=== PATIENT | male | born 2000 | race Two or more races ===

== ENCOUNTER 2024-10-13 20:02 | Emergency (ER) | payer MEDICAID, SELFPAY ==
[2024-10-13 20:03] VITALS: BMI 23.1
[2024-10-13 20:28] VITALS: BP 88/57; PULSE 117; RESP 18; O2SAT 100
[2024-10-13 20:35] VITALS: TEMP 36.4
--- NOTE | 2024-10-13 20:44 | EKG_ITS ---
[facility] Test Date: 2024-10-13 Pat Name: JOSEPH CHOW Department: Room: - Gender: Male Skirt Clipper: : 2000 Requested By: Ezra Mckeon Order Number: [id number] Reading MD: Ezra Mckeon Measurements Intervals [place] Rate: 113 P: 69 ND: 121 QRS: 75 QRSD: 71 T: 61 QT: 341 QTc: 469 Interpretive Statements SINUS TACHYCARDIA ABNORMAL RHYTHM ECG No previous ECG available for comparison /store/S0/[id number]/[id number]
--- NOTE | 2024-10-13 20:48 | EDNOTE_ITS ---
ED General RME/HPI General Chief complaint: Syncope / Near Syncope Stated complaint: SYNCOPAL EPISODE Time Seen by Provider: 10/13/24 20:43 Arrival date/time: 10/13/24 20:02 CC: Lightheaded dizzy HPI ongoing for the past week, progressively worse patient states he cannot even look up without being dizzy patient has fallen several times. The patient admits to methamphetamine use and cigarette smoking denies any alcohol no other street drugs. Patient is pale uncomfortable looking but not toxic appearing. Related Data Home Medications ?Medication ?Instructions ?Recorded ?Confirmed insulin lispro 100 unit/mL 10 unit subcut TID 07/26/20 05/03/21 subcutaneous solution (Humalog U-100 Insulin) buspirone 15 mg tablet 15 mg PO BID 05/03/21 05/03/21 chlorthalidone 25 mg tablet 25 mg PO PRN swelling 08/01/24 enalapril maleate 2.5 mg tablet 2.5 mg PO DAILY 08/01/24 08/01/24 enalapril maleate 2.5 mg tablet mg 08/01/24 escitalopram oxalate 5 mg tablet 5 mg PO DAILY 08/01/24 08/01/24 flash glucose sensor (FreeStyle 08/01/24 08/01/24 Melanie 2 Sensor kit) insulin glargine 100 unit/mL (3 20 unit subcut HS 08/01/24 08/01/24 mL) subcutaneous pen (Basaglar KwikPen U-100 Insulin) pregabalin 225 mg capsule 225 mg PO BID 08/01/24 08/01/24 trazodone 50 mg tablet 50 mg PO HS 08/01/24 08/01/24 Previous Rx's ?Medication ?Instructions ?Recorded insulin glargine 100 unit/mL (3 20 unit (0.2 mL) subcut HS #0 mL 05/05/21 mL) subcutaneous pen (Basaglar KwikPen U-100 Insulin) Allergies Allergy/AdvReac Type Severity Reaction Status Date / Time No Known Allergies Allergy Verified 10/13/24 20:05 Review of Systems Review of Systems Narrative Review of Systems: GEN: No fever, no chills, no weight loss EYES: No discharge, no visual changes, no pain HEENT: No ear pain, no congestion, no sore throat PULM: No shortness of breath, no cough, no congestion CV: No chest pain, no dyspnea on exertion, no palpitations GI: No nausea, no vomiting, no diarrhea, no pain, no constipation : No frequency, no urgency, no dysuria MUSC/SKEL: No joint pain, no back pain SKIN: No rash PSYCH: No hallucinations, no depression HEME/LYMPH: No easy bleeding or bruising tendencies NEURO: No weakness, no headache, + dizziness Past Medical History Past Medical History CARDIAC: Negative Congestive Heart Failure RESPIRATORY: Negative Chronic Obstructive Pulmonary Disease (COPD) GENITOURINARY: Negative Renal Disease ENDOCRINE: Positive Diabetes Mellitus Type 1; Negative Diabetes Mellitus Type 2 PSYCHO/SOCIAL: Positive Anxiety Social History SMOKING STATUS: Light (< 1 pack/day) SECOND HAND EXPOSURE: No SUBSTANCE USE: marijuana (weekend use) ED Exam Narrative Physical exam: [General: In discomfort but not in any acute distress Head normocephalic HEENT: Eyes pupils are PERRLA EOMs are intact, blanched conjunctiva, mouth: Lips are pale, pink dry membranes uvula is midline swallow symmetrical phonation is normal nose: No rhinorrhea all other subsystems of HEENT are within acceptable limits Neck is supple nontender no JVD no edema no LAD Chest equal chest rise nontender to palpation Respiratory: Clear to auscultation no wheezes crackles or rubs CV: Rate rhythm is regular, tachycardic, no murmurs rubs or clicks Abdomen is soft nontender no masses positive bowel sounds all 4 quadrants Back: No CVA tenderness no spinous process tenderness from cervical spine thoracic and lumbar spine Skin: Pale, intact no petechiae rash induration ulceration or crepitus Extremities: Moving all extremity against resistance cap refill less than 2 seconds neurosensory intact Neuro: Awake alert oriented x3 Glascow coma 15 no focal deficits] Course Quality Measures VTE prophylaxis Orders Category Date Time Status Bedside Blood Glucose NOW Care 10/13/24 20:30 Completed EKG (ED ONLY) *Do not use* NOW Care 10/13/24 20:44 Completed Orthostatic Vitals NOW Care 10/13/24 20:45 Completed Saline [Insert IV] NOW Care 10/13/24 20:[address] head/brain wo con Stat Exams 10/13/24 21:24 Completed EKG (ED Only) Stat Exams 10/13/24 20:44 Draft B-Type Natriuretic Peptide Stat Lab 10/13/24 21:37 Completed CBC Stat Lab 10/13/24 21:37 Completed Comprehensive Metabolic Panel Stat Lab 10/13/24 21:37 Completed Creatine Kinase Stat Lab 10/13/24 21:37 Completed Drug Screen,Urine Stat Lab 10/13/24 23:11 Completed Ketone [Beta Hydroxybutyrate] Stat Lab 10/14/24 00:48 Completed LDH (Lactate Dehydrogenase) Stat Lab 10/13/24 21:37 Completed Magnesium Stat Lab 10/13/24 21:37 Completed Partial Thromboplastin Time Stat Lab 10/13/24 21:37 Completed Prothrombin Time with INR Stat Lab 10/13/24 21:37 Completed Troponin I Stat Lab 10/13/24 21:37 Completed Urinalysis Stat Lab 10/13/24 23:11 Completed VBG [Venous Blood Gas] Stat Lab 10/14/24 00:48 Completed Sodium Chloride 0.9% 1000 ml [Ns] 1,000 ml Med 10/13/24 20:44 Discontinued IV 999 mls/hr Sodium Chloride 0.9% 1000 ml [Ns] 1,000 ml Med 10/13/24 20:44 Discontinued IV 999 mls/hr Sodium Chloride 0.9% 1000 ml [Ns] 1,000 ml Med 10/13/24 22:52 Discontinued IV 999 mls/hr Vital Signs Vital signs: Vital Signs Pulse Rate 117 H 10/13/24 20:28 Respiratory Rate 18 10/13/24 20:28 Blood Pressure 88/57 L 10/13/24 20:28 Pulse Oximetry (%) 100 10/13/24 20:28 Oxygen Delivery Method Room Air 10/13/24 20:28 [facility] Patient data External records reviewed:: [facility] previous records and EMS form Clinical information provided by:: patient and EMS Social determinants that could affect healthcare access:: none Patient has the following chronic illnesses:: Polysubstance abuse How is presenting disease/condition affected by chronic disease/condition?: e xacerbated by Evaluation data The following diagnostics were reviewed and interpreted by me:: lab results and radiology exam(s) Lab and/or radiology exams considered but not ordered:: EKG performed at 2051 shows ventricular rate of 113 NE interval 121 QRS of 71 QTc of 408 this sinus tachycardia. CBC shows no acute leukocytosis anemia thrombocytopenia CMP shows no acute electrolyte imbalances, creatinine 1.7, BUN is within acceptable limits. No transaminitis or T. bili elevation Creatinine kinase is within acceptable limits Troponin is negative BNP is negative. Interpretation Summary: Reassessment the patient at 2254, the patient is feeling a lot better dizziness is mostly resolved after 2 L of fluid the patient continues to be mildly tachycardic, will add 1/3 L to the patient. He is now awake and playing video games. Medications Medications considered but not ordered:: None Medication administrations:: Medication Administration History Discontinued Medications Sodium Chloride (Ns) 1,000 mls @ 999 mls/hr IV .Q1H1M ONE Stop: 10/13/24 21:44 Last Infusion: 10/13/24 22:57 Dose: Infused Documented By: Admin: 10/13/24 21:13 Dose: 999 mls/hr Documented By: KG Sodium Chloride (Ns) 1,000 mls @ 999 mls/hr IV .Q1H1M ONE Stop: 10/13/24 21:44 Last Infusion: 10/13/24 22:57 Dose: Infused Documented By: Admin: 10/13/24 21:13 Dose: 999 mls/hr Documented By: KG Sodium Chloride (Ns) 1,000 mls @ 999 mls/hr IV .Q1H1M ONE Stop: 10/13/24 23:52 Last Infusion: 10/14/24 00:43 Dose: Infused Documented By: Admin: 10/13/24 23:40 Dose: 999 mls/hr Documented By: KG None Consultations Consultation(s) initiated? (list below): No Diagnosis Differential Diagnosis ED Complaint MDM: Dehydration renal impairment polysubstance abuse Most likely diagnosis given after review of the tests above:: Dehydration hypotension Admission Indicated Admission indicated?: not indicated Explain why admission is indicated or not indicated:: Stable for outpatient follow-up Admission Request Was there a request for admission?: No Disposition Plan Disposition Plan: Discharge Discharge Attestation Discharge Attestation: The patient and all family members were given an opportunity to ask questions and understood the discharge instructions. Discharge instructions specifically effects, indications for sooner follow up or return to the emergency department, and the expected course of current diagnosis. Patient condition: Stable Medical Decision Making Differential Diagnosis Differential Diagnosis: Dehydration renal impairment polysubstance abuse Lab Data 10/13/24 21:37 10/13/24 21:37 Labs: Lab Results 01/04/0110/13/24 10/14/24 Range/Units 21:37 23:11 00:48 WBC 11.8 H (3.8-10.6) Thou/mm3 RBC 5.02 (4.50-5.90) Miln/mm3 Hgb 15.7 (13.5-16.0) g/dL Hct 43.5 (41.0-53.0) % MCV 87 (80-100) fL MCH 31.3 (25.0-35.0) pg MCHC 36.1 (31.0-37.0) g/dl RDW Std Deviation 38.8 (35.1-43.9) fL Plt Count 290 (140-440) Thou/mm3 Neut % (Auto) 77 (37-80) % Lymph % (Auto) 13 (10-50) % [place] % (Auto) 8 (0-12) % Eos % (Auto) 1 (0-10) % Baso % (Auto) 0 (0-2.5) % Neut # (Auto) 9.1 H (1.8-7.7) Thou/mm3 Lymph # (Auto) 1.5 (1.0-4.8) Thou/mm3 [place] # (Auto) 1.0 H (0.0-0.8) Thou/mm3 Eos # (Auto) 0.1 (0.0-0.5) Thou/mm3 Baso # (Auto) 0.0 (0.0-0.2) Thou/mm3 Immature Gran # (Auto) 0.03 H (0.00-0.00) Thou/mm3 Absolute Nucleated RBC 0.00 (0.00-0.00) Thou/mm3 Immature Gran % 0 (0-0) % Nucleated RBC % 0 (0) /100 WBC PT 11.0 (9.0-12.2) Seconds INR 1.0 (0.9-1.3) APTT 25.3 (22.0-36.0) Seconds VBG pH 7.37 (7.33-7.66) VBG pCO2 40 (36-56) mmHg VBG pO2 36 (15-58) mmHg VBG O2 Sat (Michael) 73 L (96-97) % VBG Base Excess -2 (-3-3) Sodium 142 (136-145) mMol/L Potassium 3.9 (3.4-5.1) mMol/L Chloride 104 (98-107) mMol/L Carbon Dioxide 27.3 (20.0-31.0) mMol/L Anion Gap 11 (7-16) BUN 21 (9-23) mg/dL Creatinine 1.7 H (0.6-1.3) mg/dL Estim Creat Clear Calc 55.1 L (>60) mL/min eGFR 56 L (60 - ) See Note BUN/Creatinine Ratio 12 (12-20) Ratio Glucose 110 H (74-106) mg/dL Calculated Osmolality 287 (275-295) Calcium 9.8 (8.3-10.6) mg/dL Corrected Calcium 9.8 (8.5-10.1) mg/dL Magnesium 2.1 (1.6-2.6) mg/dL Total Bilirubin 1.2 (0.3-1.2) mg/dL AST 13 (0-34) U/L ALT 13 (10-49) U/L Alkaline Phosphatase 58 (46-116) U/L Lactate Dehydrogenase 162 (120-246) U/L Total Creatine Kinase 76 (34-171) U/L Troponin I < 0.020 (0.0-0.045) ng/mL B-Natriuretic Peptide < 20 (0-100) pg/mL Total Protein 7.1 (5.7-8.2) gm/dL Albumin 4.6 (3.5-5.0) gm/dL Globulin 2.5 (2.3-3.5) gm/dL Albumin/Globulin Ratio 1.8 (1.2-2.2) Beta-Hydroxybutyrate/Acetoacetate 0.8 H (<0.6) mmol/L Ur Collection Type Clean Catch Urine Color Lt-Yellow (Lt Yel-Yel) Urine Clarity Clear (Clear/Hazy) Urine pH 6.0 (5.0-7.0) Ur Specific [place] 1.015 (1.001-1.035) Urine Protein 1+ A (Neg - Trace) Urine Glucose (UA) 4+ A (Negative) Urine Ketones 1+ A (Negative) Urine Blood Trace (Negative) Urine Nitrite Negative (Negative) Urine Bilirubin Negative (Negative) Urine Urobilinogen (Auto) Negative (0.0-1.0) mg/dL Ur Leukocyte Esterase Negative (Negative) Urine RBC 4 H (0-3) /hpf Urine WBC 9 H (0-5) /hpf Ur Squamous Epith Cells < 1 (0-5) /hpf Urine Bacteria Rare (None) Hyaline Casts 1 (0-1) /hpf Urine Opiates Screen Negative (Negative) Urine Fentanyl Screen Negative (Negative) Ur Barbiturates Screen Negative (Negative) U Amphetamin/Meth Scrn Positive A (Negative) U Benzodiazepines Scrn Negative (Negative) U Cocaine Metab Screen Positive A (Negative) U Marijuana (THC) Screen Positive A (Negative) Discharge Plan Plan Patient Disposition: HOME (Self Care) Disposition Comment: Stable for discharge Patient condition on transfer: Stable Prescriptions/Referrals Prescriptions/Med Rec: No Action insulin lispro [Humalog U-100 Insulin] 100 unit/mL Solution 10 unit SUBCUT TID buspirone 15 mg tablet 15 mg PO BID insulin glargine [Basaglar KwikPen U-100 Insulin] 100 unit/mL (3 mL) insulin pen 20 unit SUBCUT HS Qty: 0 0RF Patient Comments: INJECT 16 UNITS UNDER THE SKIN EVERY DAY AT BEDTIME trazodone 50 mg tablet 50 mg PO HS enalapril maleate 2.5 mg tablet 2.5 mg PO DAILY enalapril maleate 2.5 mg tablet pregabalin 225 mg capsule 225 mg PO BID (DME) FreeStyle Melanie 2 Sensor Kit chlorthalidone 25 mg tablet 25 mg PO PRN (Reason: swelling) escitalopram oxalate 5 mg tablet 5 mg PO DAILY Patient Comments: TAKE 1 TABLET BY ORAL ROUTE ONCE DAILY AM insulin glargine [Basaglar KwikPen U-100 Insulin] 100 unit/mL (3 mL) insulin pen 20 unit SUBCUT HS Referrals: Dean Tanner MD [Primary Care Provider] - In 1 week Problem List Clinical Impression: Polydrug abuse, Dehydration, Syncope Patient/Caregiver Discharge Instructions Discharge Activity: activity as tolerated Education Materials: What Is Syncope?, Causes of Syncope, Treating Drug Abuse and Addiction, ED Dehydration (Adult) Additional Instructions: Please return to the emergency department if you are not improving within 48 hours or if you are worsening in any way and we will help you Otherwise you should follow-up with your primary care doctor within the next several days Print Language: East Timorese Stand Alone Forms: [employer] Info., Patient Portal Info Letter
[2024-10-13 21:06] VITALS: BP 103/72; BP 120/78; BP 65/42; PULSE 115; PULSE 116; PULSE 125
[2024-10-13] MEDS: SODIUM CHLORIDE 0.9% 1000 ML 1,000 ML 999 ML IV ×3 (21:13→23:40)
--- NOTE | 2024-10-13 21:24 | XR_ITS ---
Examination: CT brain head without contrast. 2-D sagittal coronal reconstructions Date and time of exam:October 13, 2024 2158 hrs. Indications: Syncopal episode beginning 2 hours ago Comparison: February 05, 2024 CTDI: vol (mGy):48.7 DLP: (mGycm):900 Technique: Multiple CT axial sections of the brain have been obtained, 5 mm slice thickness. Contrast has not been administered. 2-D sagittal, coronal reconstructions have been obtained Low dose protocols were performed. One or more of the following dose reduction techniques were used; automated exposure control, adjustment of the mA and/or KV according to patient size, use of iterative reconstruction technique. Findings: No significant ventricular enlargement. Intra-axial or extra-axial hemorrhage density is not seen. No mass effect or midline shift Basal cisterns are not remarkable. Fourth ventricle is midline. Cranial vault intact. Impression: Negative for acute hemorrhage, mass effect or midline shift Advise clinical correlation and follow-up accordingly
--- NOTE | 2024-10-13 21:51 | PC.NURSE ---
Pt to CT scan via [facility] at this time.
[2024-10-13 22:11] LABS: Basophils % (Auto) 0 % (0-2.5); Eosinophils # (Auto) 0.1 Thou/mm3 (0.0-0.5); Eosinophils % (Auto) 1 % (0-10); Hematocrit 43.5 % (41.0-53.0); Hemoglobin 15.7 g/dL (13.5-16.0); Immature Granulocytes % (Auto) 0 % (0-0); Immature Granulocytes Auto 0.03 Thou/mm3 (0.00-0.00); Lymphocytes # (Auto) 1.5 Thou/mm3 (1.0-4.8); Lymphocytes % (Auto) 13 % (10-50); Mean Corpuscular HGB Conc 36.1 g/dl (31.0-37.0); Mean Corpuscular Hemoglobin 31.3 pg (25.0-35.0); Mean Corpuscular Volume 87 fL (80-100); Monocytes % (Auto) 8 % (0-12); Neutrophils # (Auto) 9.1 Thou/mm3 (1.8-7.7); Neutrophils % (Auto) 77 % (37-80); Nucleated Red Blood Cell % 0 /100 WBC (0); Platelet Count 290 Thou/mm3 (140-440); RDW Standard Deviation 38.8 fL (35.1-43.9); Red Blood Count 5.02 Miln/mm3 (4.50-5.90); White Blood Count 11.8 Thou/mm3 (3.8-10.6)
[2024-10-13 22:15] VITALS: BP 134/84; PULSE 109; RESP 17; O2SAT 99
[2024-10-13 22:23] LABS: B-Type Natriuretic Peptide < 20 pg/mL (0-100)
[2024-10-13 22:30] LABS: Partial Thromboplastin Time 25.3 Seconds (22.0-36.0)
[2024-10-13 22:31] LABS: Alanine Aminotransferase 13 U/L (10-49); Albumin, Serum 4.6 gm/dL (3.5-5.0); Albumin/Globulin Ratio 1.8 (1.2-2.2); Alkaline Phosphatase 58 U/L (46-116); Anion Gap 11 (7-16); Aspartate Amino Transferase 13 U/L (0-34); BUN/Creatinine Ratio 12 Ratio (12-20); Bilirubin,Total 1.2 mg/dL (0.3-1.2); Blood Urea Nitrogen 21 mg/dL (9-23); Calcium 9.8 mg/dL (8.3-10.6); Calcium (Corrected) 9.8 mg/dL (8.5-10.1); Carbon Dioxide 27.3 mMol/L (20.0-31.0); Chloride 104 mMol/L (98-107); Creatine Kinase 76 U/L (34-171); Creatinine (Component) 1.7 mg/dL (0.6-1.3); Estimated Creatinine Clearance 55.1 mL/min (>60); Globulin 2.5 gm/dL (2.3-3.5); Glucose 110 mg/dL (74-106); Magnesium 2.1 mg/dL (1.6-2.6); Osmolality,Calculated 287 (275-295); Potassium 3.9 mMol/L (3.4-5.1); Sodium 142 mMol/L (136-145); Total Protein 7.1 gm/dL (5.7-8.2); Troponin I < 0.020 ng/mL (0.0-0.045); eGFR 56 See Note
[2024-10-13 22:43] LABS: LDH (Lactate Dehydrogenase) 162 U/L (120-246)
--- NOTE | 2024-10-13 23:09 | PD.EDADDENDU ---
Emergency Room Addendum Addendum Narrative: 2300: Care assumed from Ezra Ovalle NP. Past medical, surgical, social and family history reviewed. Vitals and home medications reviewed. Results and treatment plan discussed. I will assume the care of the patient at this time and will follow the patient, pending urinalysis and re-evaluation. Please refer to the emergency department record for history and examination from initial visit. 24yo male with a history of DMI, methamphetamine abuse presents to the ED for a chief complaint of near syncope. Patient states he has not ate or drank anything today, reporting he has not used methamphetamines in the last 6 days. On exam, patient is tachycardic. WBC count is elevated at 11.8, Creatinine is 1.7, Glucose is 110. Anion Gap is normal, troponin is normal, UA shows 1+ protein, 4+ glucose, and 1+ ketones, UDS is positive for marijuana, cocaine, and marijuana, according to my interpretation. VBG shows a normal pH, normal CO2, and normal base excess; Beta Hydroxybutyrate is slightly elevated at 0.8, according to my interpretation. 0124: Patient states he feels better, but is still tachycardic on exam. Orthostatics ordered. Patient with normal orthostatic V/S. No lightheadedness or dizziness when standing up and is asymptomatic. Patient is stable to be discharged home. RADIOLOGY RESULTS: [place] [facility] Report Signed Patient: JOSEPH CHOW. Record#: [id number] Birthdate: 2000 Age/Sex: 24 / M Location: [facility] Attending Dr: Ordering Physician: Ezra Ovalle NP Date of Service: 10/13/24 Procedure(s): CT head/brain wo con Accession Number(s): [id number] cc: Ezra Ovalle NP; Rico Johnston MD; Dean Tanner MD~ Examination: CT brain head without contrast. 2-D sagittal coronal reconstructions Date and time of exam:October 13, 2024 2158 hrs. Indications: Syncopal episode beginning 2 hours ago Comparison: February 05, 2024 CTDI: vol (mGy):48.7 DLP: (mGycm):900 Technique: Multiple CT axial sections of the brain have been obtained, 5 mm slice thickness. Contrast has not been administered. 2-D sagittal, coronal reconstructions have been obtained Low dose protocols were performed. One or more of the following dose reduction techniques were used; automated exposure control, adjustment of the mA and/or KV according to patient size, use of iterative reconstruction technique. Findings: No significant ventricular enlargement. Intra-axial or extra-axial hemorrhage density is not seen. No mass effect or midline shift Basal cisterns are not remarkable. Fourth ventricle is midline. Cranial vault intact. Impression: Negative for acute hemorrhage, mass effect or midline shift Advise clinical correlation and follow-up accordingly Dictated By: Rico Johnston MD Signed By: <Electronically signed by Rico Johnston MD in [place]> 10/13/24 8824
[2024-10-13 23:15] LABS: Collection Type, Urine Clean Catch
[2024-10-13 23:42] VITALS: BP 130/90; PULSE 110; RESP 16; O2SAT 99
[2024-10-14 00:01] LABS: Amphetamine/Methamp Scrn,U Positive (Negative); Barbiturate Screen,Urine Negative (Negative); Benzodiazepines Screen,Urine Negative (Negative); Benzoylecgonine Screen, Ur Positive (Negative); Fentanyl Screen,Urine Negative (Negative); Opiate Screen,Urine Negative (Negative); THC Screen,Urine Positive (Negative)
[2024-10-14 00:04] LABS: Bacteria,Urine Rare; Bilirubin,Urine Negative (Negative); Blood,Urine Trace (Negative); Clarity,Urine Clear (Clear/Hazy); Color,Urine Lt-Yellow (Lt Yel-Yel); Glucose, Urine 4+ (Negative); Hyaline Casts,Urine 1 /hpf (0-1); Ketones,Urine 1+ (Negative); Leukocyte Esterase,Urine Negative (Negative); Nitrite,Urine Negative (Negative); Protein,Urine 1+ (Neg - Trace); RBC,Urine 4 /hpf (0-3); Specific Gravity,Urine 1.015 (1.001-1.035); Squamous Epithelial Cell,Urine < 1 /hpf (0-5); Urobilinogen,Urine Negative mg/dL (0.0-1.0); WBC,Urine 9 /hpf (0-5)
[2024-10-14 01:02] LABS: Base Excess, Venous -2 (-3-3); O2 Saturation, Venous 73 % (96-97); PCO2, Venous 40 mmHg (36-56); PO2, Venous 36 mmHg (15-58); pH, Venous 7.37 (7.33-7.66)
[2024-10-14 01:15] LABS: Beta Hydroxybutyrate 0.8 mmol/L (<0.6)
[2024-10-14 01:36] VITALS: BP 154/107; BP 182/102; PULSE 108; PULSE 115
[2024-10-14 01:41] VITALS: BP 154/118; PULSE 111; RESP 14; TEMP 36.6; O2SAT 99
[2024-10-14 03:07] VITALS: BP 165/113; PULSE 104; RESP 18; O2SAT 100
== END 2024-10-14 03:07 | disposition home or self-care (01) ==
PROVIDERS: Registered Nurse General Practice; Emergency Provider Emergency Medicine; PCP Family Medicine
DX: E86.0 Dehydration (principal); R55 Syncope and collapse; F15.10 Other stimulant abuse, uncomplicated; R00.0 Tachycardia, unspecified
CPT/HCPCS: 36415; 70450; 80053; 80307; 81001; 82010; 82550; 82803; 83615; 83735; 83880; 84484; 85025; 85610; 85730; 93005; 96360; 96361; 99284; J7030

== ENCOUNTER 2024-11-15 14:39 | Emergency (ER) | payer MEDICAID, SELFPAY ==
[2024-11-15 14:47] VITALS: BP 145/96; PULSE 114; RESP 18; TEMP 37.3; O2SAT 97; BMI 22.3
--- NOTE | 2024-11-15 15:17 | EDNOTE_ITS ---
<Statement entered by Viky Colorado MD - 11/16/24 13:50> As co-signing physician, I was present and available for consult prn. I concur with the plan and care as documented by the midlevel provider. ED Dental RME/HPI General Chief complaint: Dental/Oral/Throat Stated complaint: left lower toothache Time Seen by Provider: 11/15/24 14:53 Source: patient Arrival date/time: 11/15/24 14:39 This is a 24-year-old male who presents to the emergency department with complaints of left lower tooth pain. Patient reports he has a bad cavity in which he needs to have pulled out by his dentist. He did go to his dentist today however they are not able to pull out the tooth to 25 November. Patient requesting pain medication today. Mode of arrival: ambulatory Limitations: no limitations Related Data Home Medications ?Medication ?Instructions ?Recorded ?Confirmed insulin lispro 100 unit/mL 10 unit subcut TID 07/26/20 05/03/21 subcutaneous solution (Humalog U-100 Insulin) buspirone 15 mg tablet 15 mg PO BID 05/03/21 chlorthalidone 25 mg tablet 25 mg PO PRN swelling 07/09 02/28 enalapril maleate 2.5 mg tablet 2.5 mg PO DAILY 08/01/24 enalapril maleate 2.5 mg tablet mg 08/01/24 escitalopram oxalate 5 mg tablet 5 mg PO DAILY 4 08/01/24 flash glucose sensor (FreeStyle 08/01/24 08/01/24 Melanie 2 Sensor kit) insulin glargine 100 unit/mL (3 20 unit subcut HS 07/0908/01/24 mL) subcutaneous pen (Basaglar KwikPen U-100 Insulin) pregabalin 225 mg capsule 225 mg PO BID 08/01/2408/01 trazodone 50 mg tablet 50 mg PO HS 08/01/24 4 Previous Rx's ?Medication ?Instructions ?Recorded insulin glargine 100 unit/mL (3 20 unit (0.2 mL) subcu t HS #0 mL 05/05/21 mL) subcutaneous pen (Basaglar KwikPen U-100 Insulin) amoxicillin 875 mg-potassium 1 tab PO BID #14 tabs 06/01 clavulanate 125 mg tablet chlorhexidine gluconate 0.12 % 15 ml buccal BID 5 days #473 mL 11/15/24 mouthwash Allergies Allergy/AdvReac Type Severity Reaction Status Date / Time No Known Allergies Allergy Verified 11/15/24 14:42 Review of Systems Review of Systems Systems Reviewed: All systems reviewed, normal except as documented Narrative Review of Systems: Gen: No fever, no chills, no weight loss EYES: No discharge, no visual changes, no pain HEENT: No ear pain, no congestion, no sore throat, dental pain PULM: No shortness of breath, no cough, no congestion CV: No chest pain, no dyspnea on exertion, no palpitations GI: No nausea, no vomiting, no diarrhea, no pain, no constipation : No frequency, no urgency, no dysuria Musc/skel: No joint pain, no back pain Skin: No rash Psyc: No hallucinations, no depression Heme/Lymph: No easy bleeding or bruising tendencies Neuro: No weakness, no headache ED Exam General Limitations: Present no limitations General appearance: Present alert and in no apparent distress Head Head exam: Present atraumatic Eye Eye exam: Present normal appearance, PERRL and EOMI ENT ENT exam: Present normal oropharynx and mucous membranes moist Expanded ENT Exam Mouth exam: Present normal external inspection; Absent drooling or trismus Teeth exam: Present dental caries and dental tenderness # Neck Neck exam: Present normal inspection, full ROM and trachea midline Chest Chest inspection: Present normal inspection and symmetric chest wall rise Respiratory Respiratory exam: Present normal lung sounds bilaterally Cardiovascular Cardiovascular exam: Present regular rate, normal rhythm and normal heart sounds Abdominal Exam Abdominal exam: Present soft and normal bowel sounds Extremities Exam Extremities exam: Present normal inspection and full ROM Back Exam Back exam: Present normal inspection and full ROM Neurological Exam Neurological exam: Present alert, oriented X3 and CN II-XII intact Psychiatric Psychiatric exam: Present normal affect and normal mood Skin Skin exam: Present warm, dry, intact and normal color Course Quality Measures none Orders Category Date Time Status HYDROcodone*/APAP 7.5/325 [[place] 7.5/325] Med 11/15/24 15:10 Discontinued 1 tab PO X1 ONE Ibuprofen Tab [Motrin Tab] Med 11/15/24 15:10 Discontinued 600 mg PO X1 ONE Vital Signs Vital signs: Vital Signs Temperature 99.1 F 11/15/24 14:47 Pulse Rate 114 H 11/15/24 14:47 Respiratory Rate 18 11/15/24 14:47 Blood Pressure 145/96 H 11/15/24 14:47 Pulse Oximetry (%) 97 11/15/24 14:47 Oxygen Delivery Method Room Air 11/15/24 14:47 Dental / Oral Patient data External records reviewed:: [facility] previous records Clinical information provided by:: patient Social determinants that could affect healthcare access:: none Patient has the following chronic illnesses:: Diabetes, How is presenting disease/condition affected by chronic disease/condition?: uneffected by Evaluation data The following diagnostics were reviewed and interpreted by me:: other (specify) Lab and/or radiology exams considered but not ordered:: None Interpretation Summary: No Medications / Prescriptions Medications or Prescriptions considered but not ordered:: No Medication administrations:: Medication Administration History Discontinued Medications Hydrocodone Bitart/Acetaminophen (Hydrocodone/Apap 7.5/325 Tablet) 1 tab PO X1 ONE Stop: 11/15/24 15:11 Ibuprofen (Ibuprofen Tab 600 Mg Tablet) 600 mg PO X1 ONE Stop: 11/15/24 15:11 All medications administered and effective Consultations Consultation(s) initiated? (list below): No Diagnosis Dental Differential Diagnosis: gingival abscess, dental caries, toothache and dental abscess Most likely diagnosis given after review of the tests above:: Dental caries, tooth take Admission Indicated Admission indicated?: not indicated Admission Request Was there a request for admission?: No Disposition Plan Disposition Plan: Discharge Discharge Attestation Discharge Attestation: The patient and all family members were given an opportunity to ask questions and understood the discharge instructions. Discharge instructions specifically effects, indications for sooner follow up or return to the emergency department, and the expected course of current diagnosis. Patient condition: Stable Discharge Plan Plan Patient Disposition: HOME (Self Care) Patient condition on transfer: Stable Prescriptions/Referrals Prescriptions/Med Rec: New amoxicillin-pot clavulanate 875-125 mg tablet 1 tab PO BID Qty: 14 0RF chlorhexidine gluconate 0.12 % mouthwash 15 ml buccal BID 5 Days Qty: 473 0RF Rx Instructions: 15ml swish/spit for 30 seconds and spit BID for 5 days No Action insulin lispro [Humalog U-100 Insulin] 100 unit/mL Solution 10 unit SUBCUT TID buspirone 15 mg tablet 15 mg PO BID insulin glargine [Basaglar KwikPen U-100 Insulin] 100 unit/mL (3 mL) insulin pen 20 unit SUBCUT HS Qty: 0 0RF Patient Comments: INJECT 16 UNITS UNDER THE SKIN EVERY DAY AT BEDTIME trazodone 50 mg tablet 50 mg PO HS enalapril maleate 2.5 mg tablet 2.5 mg PO DAILY enalapril maleate 2.5 mg tablet pregabalin 225 mg capsule 225 mg PO BID (DME) FreeStyle Melanie 2 Sensor Kit chlorthalidone 25 mg tablet 25 mg PO PRN (Reason: swelling) escitalopram oxalate 5 mg tablet 5 mg PO DAILY Patient Comments: TAKE 1 TABLET BY ORAL ROUTE ONCE DAILY AM insulin glargine [Basaglar KwikPen U-100 Insulin] 100 unit/mL (3 mL) insulin pen 20 unit SUBCUT HS Problem List Clinical Impression: Dental caries, Toothache Patient/Caregiver Discharge Instructions Discharge Activity: activity as tolerated Education Materials: ED Dental Pain, ED Dental Cavity Additional Instructions: Please keep your appointment with your dentist. Use antibiotic as directed. Use mouthwash as directed. Return to the emergency department this any worsening symptoms any condition. Print Language: Turkmen Stand Alone Forms: Xiao Award Info., Patient Portal Info Letter PA/SUPERVISOR PLATE [employer]MING Supervising Physician PA/SUPERVISOR [employer]ATE [employer]MING Supervising Physician: Dr. Moya
[2024-11-15] MEDS: HYDROcodone/APAP 7.5/325 TABLET 1 TAB PO (15:27)
[2024-11-15] MEDS: IBUPROFEN TAB 600 MG TABLET PO (15:28)
== END 2024-11-15 15:30 | disposition home or self-care (01) ==
PROVIDERS: Emergency Provider Emergency Medicine; PCP Family Medicine
DX: K02.9 Dental caries, unspecified (principal)
CPT/HCPCS: 99283; A9270

== ENCOUNTER 2025-03-13 16:39 | Emergency (ER) | payer OTHER, SELFPAY ==
[2025-03-13 16:41] VITALS: BMI 23.9
[2025-03-13 16:58] VITALS: BP 130/86; PULSE 106; RESP 18; TEMP 36.7; O2SAT 99
--- NOTE | 2025-03-13 17:19 | PD.EDRME ---
Rapid Medical Screening Exam [facility] Arrival date/time: 03/13/25 16:39 24-year-old male with a history of type 1 diabetes presents to the emergency room with a chief complaint of oil barr to his bilateral hands from work. 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 I have greeted and performed a focused initial assessment of this patient. A comprehensive ED assessment and evaluation of the patient, analysis of all test results, and completion of the medical decision making process will be conducted by additional ED providers. Chief Complaint: Burn/Smoke Inhalation Vital signs: Vital Signs Temperature 98.1 F 03/13/25 16:58 Pulse Rate 106 H 03/13/25 16:58 Respiratory Rate 18 03/13/25 16:58 Blood Pressure 130/86 H 03/13/25 16:58 Pulse Oximetry (%) 99 03/13/25 16:58 Oxygen Delivery Method Room Air 03/13/25 16:58 Vital signs reviewed by provider: Yes
[2025-03-13 19:47] VITALS: BP 162/98; PULSE 112; RESP 18; TEMP 36.8; O2SAT 97
[2025-03-13] MEDS: INSULIN LISPRO (AdmeLOG) 1 UNIT/0.01 ML UNIT 15 UNIT SC (21:56)
[2025-03-13] MEDS: BACITRACIN OINT 1 GM PACKET TOP (21:57)
--- NOTE | 2025-03-13 22:18 | PD.EDBURN ---
ED Smoke Inhal. Burn- RME/HPI General Chief complaint: Burn/Smoke Inhalation Stated complaint: L & R HAND WEINSTEIN X10 DAYS Time Seen by Provider: 03/13/25 18:26 Source: patient Arrival date/time: 03/13/25 16:39 24-year-old male with a history of type 1 diabetes presents to the emergency room with a chief complaint of oil weinstein to his bilateral hands from work. 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 Mode of arrival: ambulatory Limitations: no limitations RME / HPI RME / HPI Narrative: 03/13/25 16:39 24-year-old male with a history of type 1 diabetes presents to the emergency room with a chief complaint of oil weinstein to his bilateral hands from work. 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 I have greeted and performed a focused initial assessment of this patient. A comprehensive ED assessment and evaluation of the patient, analysis of all test results, and completion of the medical decision making process will be conducted by additional ED providers. Related Data Home Medications ?Medication ?Instructions ?Recorded ?Confirmed insulin lispro 100 unit/mL 10 unit subcut TID 07/26/20 05/03/21 subcutaneous solution (Humalog U-100 Insulin) buspirone 15 mg tablet 15 mg PO BID 05/03/21 05/03/21 chlorthalidone 25 mg tablet 25 mg PO PRN swelling 08/01/24 enalapril maleate 2.5 mg tablet 2.5 mg PO DAILY 08/01/24 08/01/24 enalapril maleate 2.5 mg tablet mg 08/01/24 escitalopram oxalate 5 mg tablet 5 mg PO DAILY 08/01/24 08/01/24 flash glucose sensor (FreeStyle 08/01/24 08/01/24 Melanie 2 Sensor kit) insulin glargine 100 unit/mL (3 20 unit subcut HS 08/01/24 08/01/24 mL) subcutaneous pen (Basaglar KwikPen U-100 Insulin) pregabalin 225 mg capsule 225 mg PO BID 08/01/24 08/01/24 trazodone 50 mg tablet 50 mg PO HS 08/01/24 08/01/24 Previous Rx's ?Medication ?Instructions ?Recorded insulin glargine 100 unit/mL (3 20 unit (0.2 mL) subcut HS #0 mL 05/05/21 mL) subcutaneous pen (Basaglar KwikPen U-100 Insulin) amoxicillin 875 mg-potassium 1 tab PO BID #14 tabs 11/15/24 clavulanate 125 mg tablet bacitracin 500 unit/gram topical 1 applic topical TID #28 grams 03/13/25 ointment ciprofloxacin HCl 500 mg tablet 500 mg PO BID 7 days #14 tabs 03/13/25 Allergies Allergy/AdvReac Type Severity Reaction Status Date / Time No Known Allergies Allergy Verified 03/13/25 16:43 Review of Systems Review of Systems Systems Reviewed: All systems reviewed, normal except as documented Constitutional Constitutional: Reports system reviewed and no additional complaints, except as documented, Denies fatigue, Denies fever(s), Denies headache(s) and Denies weakness Eyes Eyes: Reports system reviewed and no additional complaints, except as documented, Denies blurry vision and Denies change in vision ENT Ears, Nose, Mouth, and Throat: Reports system reviewed and no additional complaints, except as documented, Denies otalgia, Denies headache(s), Denies nasal congestion, Denies throat swelling and Denies vertigo Cardiovascular Cardiovascular: Reports system reviewed and no additional complaints, except as documented, Denies chest pain, Denies dyspnea and Denies dyspnea on exertion Respiratory Respiratory: Reports system reviewed and no additional complaints, except as documented, Denies chest congestion, Denies cough, Denies dyspnea, Denies dyspnea on exertion and Denies wheezing Gastrointestinal Gastrointestinal: Reports system reviewed and no additional complaints, except as documented, Denies abdominal pain, Denies cramping, Denies nausea and Denies vomiting Genitourinary Genitourinary: Reports system reviewed and no additional complaints, except as documented, Denies dysuria and Denies hematuria Musculoskeletal Musculoskeletal: Reports system reviewed and no additional complaints, except as documented and Denies back pain Integumentary/Breasts Skin/Breast: Reports system reviewed and no additional complaints, except as documented, Reports skin pain and Reports wounds Neurologic Neurologic: Reports system reviewed and no additional complaints, except as documented, Denies confusion, Denies headache(s), Denies lack of coordination, Denies vertigo and Denies weakness Psychiatric Psychiatric: Reports system reviewed and no additional complaints, except as documented, Denies anxiety, Denies confusion, Denies depression, Denies paranoia, Denies suicidal ideation and Denies tactile hallucinations Endocrine Endocrine: Reports system reviewed and no additional complaints, except as documented and Denies fatigue Hematologic/Lymphatic Hematologic/Lymphatic: Reports system reviewed and no additional complaints, except as documented and Denies lymphadenopathy Allergic/Immunologic Allergic/Immunologic: Reports system reviewed and no additional complaints, except as documented, Denies throat swelling, Denies urticaria and Denies wheezing Past Medical History Past Medical History CARDIAC: Negative Congestive Heart Failure RESPIRATORY: Negative Chronic Obstructive Pulmonary Disease (COPD) GENITOURINARY: Negative Renal Disease ENDOCRINE: Positive Diabetes Mellitus Type 1; Negative Diabetes Mellitus Type 2 PSYCHO/SOCIAL: Positive Anxiety Social History SMOKING STATUS: Current every day smoker SECOND HAND EXPOSURE: No SUBSTANCE USE: marijuana (weekend use) ED Exam General Limitations: Present no limitations General appearance: Present alert and in no apparent distress Head Head exam: Present atraumatic Eye Eye exam: Present normal appearance, PERRL and EOMI ENT ENT exam: Present normal exam, normal oropharynx and mucous membranes moist Neck Neck exam: Present normal inspection, full ROM and trachea midline Chest Chest inspection: Present normal inspection and symmetric chest wall rise Respiratory Respiratory exam: Present normal lung sounds bilaterally Cardiovascular Cardiovascular exam: Present regular rate, normal rhythm and normal heart sounds Abdominal Exam Abdominal exam: Present soft and normal bowel sounds Extremities Exam Extremities exam: Present normal inspection and full ROM Expanded Upper Extremity Exam Shoulder exam: Present normal inspection Arm exam: Present normal inspection Elbow exam: Present normal inspection Forearm/Wrist exam: Present normal inspection Hand exam: Present normal inspection, tenderness and erythema; Absent swelling, abrasion, laceration, skin avulsion, ecchymosis, deformity, crepitus or dislocation Hand L/R back image:  1. Second-degree weinstein to his hands. His weinstein have been there for more than 5 days. 2. Second-degree weinstein to his hands. His weinstein have been there for more than 5 days. 3. Second-degree weinstein to his hands. His weinstein have been there for more than 5 days. Back Exam Back exam: Present normal inspection and full ROM Neurological Exam Neurological exam: Present alert, oriented X3 and CN II-XII intact Psychiatric Psychiatric exam: Present normal affect and normal mood Skin Skin exam: Present warm, dry, intact and normal color Course Quality Measures none Orders Category Date Time Status Wound Care X1 Care 03/13/25 17:18 Active Bacitracin Oint pkt Med 03/13/25 17:18 Discontinued 1 gm TOP X1 ONE INSULIN LISPRO (AdmeLOG) [HumaLOG] Med 03/13/25 21:21 Discontinued 15 unit SC X1 ONE Vital Signs Vital signs: Vital Signs Temperature 98.1 F 03/13/25 16:58 Pulse Rate 106 H 03/13/25 16:58 Respiratory Rate 18 03/13/25 16:58 Blood Pressure 130/86 H 03/13/25 16:58 Pulse Oximetry (%) 99 03/13/25 16:58 Oxygen Delivery Method Room Air 03/13/25 16:58 To saturation 99% within normal limits Burn MDM Narrative MDM Narrative:: 24-year-old male with a history of type 1 diabetes presents to the emergency room with a chief complaint of oil weinstein to his bilateral hands from work. 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 He is hemodynamically stable and in no apparent distress Physical examination shows weinstein to the bilateral hands. Patient states these weinstein have been in his hands anywhere from 5 to 10 days. The 2 biggest weinstein are on the second digits of each hand. There are about the size of a dime. There are old wounds that are crusting. Patient is a type I diabetic but states he is controlling his sugar. Patient forgot his insulin and while in the lobby ate his food.. My reevaluation to discharge the patient the patient states his blood sugar is elevated. A fingerstick was done and his sugar was at 497. 15 units of lispro were given. The patient was reevaluated in 30 minutes with significant improvement to his sugar as he has dropped down to 406. Attending physician Dr. Hudson was then consulted and stated that the sugar is trending down and the patient has insulin at home. Patient's wounds were cleaned and irrigated and dressed. Bacitracin was put on the. This case was reviewed with my attending physician Dr. Hudson. He evaluated the patient looked at the wounds and advised me to give the patient 15 units of lispro and discharge. Antibiotics were sent to the patient's pharmacy patient was discharged and educated to follow-up with his primary care provider and return to the emergency room for any evidence of worsening signs or symptoms Patient data External records reviewed:: [facility] previous records Clinical information provided by:: patient Social determinants that could affect healthcare access:: none Patient has the following chronic illnesses:: Type 1 diabetes How is presenting disease/condition affected by chronic disease/condition?: exacerbated by Evaluation data The following diagnostics were reviewed and interpreted by me:: lab results and radiology exam(s) Lab and/or radiology exams considered but not ordered:: Labs and radiology exams considered and ordered Interpretation Summary: N/A Medications / Prescriptions Medications or Prescriptions considered but not ordered:: Medication given Medication administrations:: Medication Administration History Discontinued Medications Bacitracin (Bacitracin Oint 1 Gm Packet) 1 gm TOP X1 ONE Stop: 03/13/25 17:19 Last Admin: 03/13/25 21:57 Dose: 1 gm Documented By: LESLIE Insulin Human Lispro (Insulin Lispro (Admelog) 1 Unit/0.01 Ml Unit) 15 unit SC X1 ONE Stop: 03/13/25 21:22 Last Admin: 03/13/25 21:56 Dose: 15 unit Documented By: LESLIE Co-signed By: URIAH Medication given Consultations Consultation(s) initiated? (list below): No Diagnosis Burn Differential Diagnosis: other (Second-degree weinstein) Most likely diagnosis given after review of the tests above:: Second-degree weinstein to bilateral hands Admission Indicated Admission indicated?: not indicated Admission Request Was there a request for admission?: No Disposition Plan Disposition Plan: Discharge Discharge Attestation Discharge Attestation: The patient and all family members were given an opportunity to ask questions and understood the discharge instructions. Discharge instructions specifically effects, indications for sooner follow up or return to the emergency department, and the expected course of current diagnosis. Patient condition: Stable Discharge Plan Plan Patient Disposition: HOME (Self Care) Discharge Disposition comment: Stable Prescriptions/Referrals Prescriptions/Med Rec: New ciprofloxacin HCl 500 mg tablet 500 mg PO BID 7 Days Qty: 14 0RF bacitracin 500 unit/gram ointment 1 applic topical TID Qty: 28 0RF No Action insulin lispro [Humalog U-100 Insulin] 100 unit/mL Solution 10 unit SUBCUT TID buspirone 15 mg tablet 15 mg PO BID insulin glargine [Basaglar KwikPen U-100 Insulin] 100 unit/mL (3 mL) insulin pen 20 unit SUBCUT HS Qty: 0 0RF Patient Comments: INJECT 16 UNITS UNDER THE SKIN EVERY DAY AT BEDTIME trazodone 50 mg tablet 50 mg PO HS enalapril maleate 2.5 mg tablet 2.5 mg PO DAILY enalapril maleate 2.5 mg tablet pregabalin 225 mg capsule 225 mg PO BID (DME) FreeStyle Melanie 2 Sensor Kit chlorthalidone 25 mg tablet 25 mg PO PRN (Reason: swelling) escitalopram oxalate 5 mg tablet 5 mg PO DAILY Patient Comments: TAKE 1 TABLET BY ORAL ROUTE ONCE DAILY AM insulin glargine [Basaglar KwikPen U-100 Insulin] 100 unit/mL (3 mL) insulin pen 20 unit SUBCUT HS amoxicillin-pot clavulanate 875-125 mg tablet 1 tab PO BID Qty: 14 0RF Referrals: Dean Tanner MD [Primary Care Provider] - In 1 week Problem List Clinical Impression: Second degree burn of left hand, Second degree burn of back of right hand, Hyperglycemia Patient/Caregiver Discharge Instructions Education Materials: ED First- and Second-Degree Weinstein ... Additional Instructions: Please follow-up with your primary care provider in the next 24 to 48 hours Antibiotics sent to your pharmacy please pick them up and take them as indicated Please control your sugar as this can impede the recovery of your wounds For any evidence of worsening signs or symptoms return to the emergency room immediately Print Language: Ukrainian Stand Alone Forms: Xiao Award Info., Patient Portal Info Letter PA/VANITA Supervising Physician AISLINN/VANITA Supervising Physician: Dr. Tarango
--- NOTE | 2025-03-17 18:38 | PC.NURSE ---
Attempted to contact patient in regard to [facility] worker comp paper work fom visit on 03/13/25, unable to leave . Papers will be available in MR.
== END 2025-03-14 00:17 | disposition home or self-care (01) ==
PROVIDERS: Emergency Provider Emergency Medicine; PCP Family Medicine
DX: T23.232A Burn of second degree of multiple left fingers (nail), not including thumb, initial encounter (principal); T23.261A Burn of second degree of back of right hand, initial encounter; T23.231A Burn of second degree of multiple right fingers (nail), not including thumb, initial encounter; T31.0 Burns involving less than 10% of body surface; X08.8XXA Exposure to other specified smoke, fire and flames, initial encounter; Y93.G2 Activity, grilling and smoking food; Y92.511 Restaurant or cafe as the place of occurrence of the external cause; Y99.0 Civilian activity done for income or pay
CPT/HCPCS: 96372; 99283; J1815; A9270

== ENCOUNTER 2025-09-03 15:46 | Inpatient (IN) | payer MEDICAID, SELFPAY ==
[2025-09-03] VITALS (8 sets, daily range): BP systolic 99–141; BP diastolic 62–96; PULSE 124–139; RESP 9–20; TEMP 36.5–36.9; O2SAT 96–100; BMI 24.0
--- NOTE | 2025-09-03 16:12 | EKG_ITS ---
[facility] Test Date: 2025-09-03 Pat Name: JOSEPH CHOW Department: Room: - Gender: Male Clinical Staff Rn: : 2000 Requested By: Nadeem Feliz Order Number: [id number] Reading MD: Nadeem Feliz Measurements Intervals [place] Rate: 135 P: 61 ME: 111 QRS: 77 QRSD: 86 T: 32 QT: 300 QTc: 450 Interpretive Statements SINUS TACHYCARDIA WITH SHORT ME INTERVAL NONSPECIFIC T-WAVE ABNORMALITY ABNORMAL RHYTHM ECG Compared to ECG 10/13/2024 20:52:42 Short ME interval now present T-wave abnormality now present /store/S0/[id number].pdf
--- NOTE | 2025-09-03 16:12 | XR_ITS ---
EXAMINATION: AP chest single view TECHNIQUE: AP portable semiupright chest single view Date and time: September 03, 2025, 1651 hours INDICATIONS: Chest pain beginning several days ago. FINDINGS: Normal heart size Lungs are clear. Osseous rectors are intact IMPRESSION: No active disease
--- NOTE | 2025-09-03 16:14 | PD.EDADULT ---
ED General RME/HPI General Chief complaint: General Adult/Misc Complain Stated complaint: HIGH BLOOD SUGARS Time Seen by Provider: 09/03/25 15:47 Arrival date/time: 09/03/25 15:46 25-year-old male patient with significant history of type 1 diabetes mellitus, came in for evaluation regarding nausea and vomiting. Has been having nausea and vomiting, not feeling well, has been ongoing for the last 4 days, associated with generalized body weakness. Patient told me that he has been taking his insulin without fail. Patient admits to trying to stop methamphetamine abuse, last use yesterday. No fever noted no diarrhea. No other complaints noted. Was admitted here before for DKA. Related Data Home Medications ?Medication ?Instructions ?Recorded ?Confirmed insulin lispro 100 unit/mL 10 unit subcut TID 07/26/20 05/03/21 subcutaneous solution (Humalog U-100 Insulin) buspirone 15 mg tablet 15 mg PO BID 05/03/21 05/03/21 chlorthalidone 25 mg tablet 25 mg PO PRN swelling 08/01/24 enalapril maleate 2.5 mg tablet 2.5 mg PO DAILY 08/01/24 08/01/24 enalapril maleate 2.5 mg tablet mg 08/01/24 escitalopram oxalate 5 mg tablet 5 mg PO DAILY 08/01/24 08/01/24 flash glucose sensor (FreeStyle 08/01/24 08/01/24 Melanie 2 Sensor kit) insulin glargine 100 unit/mL (3 20 unit subcut HS 08/01/24 08/01/24 mL) subcutaneous pen (Basaglar KwikPen U-100 Insulin) pregabalin 225 mg capsule 225 mg PO BID 08/01/24 08/01/24 trazodone 50 mg tablet 50 mg PO HS 08/01/24 08/01/24 escitalopram oxalate 20 mg tablet mg 09/03/25 insulin aspart U-100 100 unit/mL subcut 09/03/25 (3 mL) subcutaneous pen (Novolog FlexPen U-100 Insulin aspart) meloxicam 7.5 mg tablet mg 09/03/25 risperidone 2 mg tablet mg 09/03/25 trazodone 100 mg tablet mg 09/03/25 Previous Rx's ?Medication ?Instructions ?Recorded insulin glargine 100 unit/mL (3 20 unit (0.2 mL) subcut HS #0 mL 05/05/ mL) subcutaneous pen (Basaglar KwikPen U-100 Insulin) amoxicillin 875 mg-potassium 1 tab PO BID #14 tabs 11/15/24 clavulanate 125 mg tablet bacitracin 500 unit/gram topical 1 applic topical TID #28 grams 03/13/25 ointment Allergies Allergy/AdvReac Type Severity Reaction Status Date / Time No Known Allergies Allergy Verified 03/13/25 16:43 Review of Systems Review of Systems Narrative Review of Systems: Review of system reviewed and within normal limits except mentioned in HPI ED Exam Narrative Physical exam: VITAL SIGNS: Reviewed. GENERAL APPEARANCE: Alert and interactive, follows commands, no acute distress, HEAD AND FACE: Non-traumatic. ENT: PERRL, pink conjunctivitis, eyelid no trauma, Mucous membrane dry NECK: Supple, nontender, no nuchal rigidity. CHEST: No tenderness, no crepitus, no paradoxical movement, no retractions. LUNGS: Clear, well ventilated, symmetric, no rales, no wheezing, no ronchi, no stridor, good breath sounds bilaterally. HEART: Tachycardic, no murmur, no gallops. ABDOMEN: Soft, positive bowel sounds, nondistended, no guarding, nontender, no rebound, no masses, RECTAL: Deferred. GENITAL: Deferred. NEUROLOGICAL: Gross motor function intact sensory function intact, Appropriate for age. MUSCULOSKELETAL: low back nontender, full range of motion. EXTREMITIES: Nontender, full range of motion. SKIN: Color pink, dry, no rash, no lacerations, no abrasions, no contusions. LYMPHATICS: Deferred. Course Quality Measures none Orders Category Date Time Status Admit to Inpatient Status Routine Admission 09/03/25 19:21 Active Patient Condition Routine Admission 09/03/25 19:22 Ordered Bedside Blood Glucose NOW Care 09/03/25 16:18 Active Bedside Blood Glucose Q1H Care 09/03/25 19:26 Active Fall Intern Q4H Care 09/03/25 19:26 Active DKA Protocol QSHIFT Care 09/03/25 19:26 Active EKG (ED ONLY) *Do not use* NOW Care 09/03/25 16:12 Completed Insert IV NOW Care 09/03/25 16:18 Active Intake and Output Q1H Care 09/03/25 19:30 Ordered Intake and Output Q1H Care 09/03/25 20:30 Ordered Intake and Output Q1H Care 09/03/25 21:30 Ordered Intake and Output Q1H Care 09/03/25 22:30 Ordered Intake and Output Q1H Care 09/03/25 23:30 Ordered May take PO meds w/sips of H2O NEEDED Care 09/03/25 19:21 Active NPO NOW Care 09/03/25 19:23 Active Notify provider NEEDED Care 09/03/25 19:22 Active Notify provider NEEDED Care 09/03/25 19:26 Active Obtain weight daily Care 09/03/25 19:23 Active Strict Intake and Output Q1H Care 09/03/25 19:30 Ordered Strict Intake and Output Q1H Care 09/03/25 20:30 Ordered Strict Intake and Output Q1H Care 09/03/25 21:30 Ordered Strict Intake and Output Q1H Care 09/03/25 22:30 Ordered Strict Intake and Output Q1H Care 09/03/25 23:30 Ordered Strict Intake and Output Q1H Care 09/04/25 00:30 Ordered Strict Intake and Output Q1H Care 09/04/25 01:30 Ordered Strict Intake and Output Q1H Care 09/04/25 02:30 Ordered Strict Intake and Output Q1H Care 09/04/25 03:30 Ordered Strict Intake and Output Q1H Care 09/04/25 04:30 Ordered Strict Intake and Output Q1H Care 09/04/25 05:30 Ordered Strict Intake and Output Q1H Care 09/04/25 06:30 Ordered Strict Intake and Output Q1H Care 09/04/25 07:30 Ordered Strict Intake and Output Q1H Care 09/04/25 08:30 Ordered Strict Intake and Output Q1H Care 09/04/25 09:30 Ordered Strict Intake and Output Q1H Care 09/04/25 10:30 Ordered Strict Intake and Output Q1H Care 09/04/25 11:30 Ordered Strict Intake and Output Q1H Care 09/04/25 12:30 Ordered Strict Intake and Output Q1H Care 09/04/25 13:30 Ordered Strict Intake and Output Q1H Care 09/04/25 14:30 Ordered Strict Intake and Output Q1H Care 09/04/25 15:30 Ordered Strict Intake and Output Q1H Care 09/04/25 16:30 Ordered Strict Intake and Output Q1H Care 09/04/25 17:30 Ordered Strict Intake and Output Q1H Care 09/04/25 18:30 Ordered Referral Registered Dietitian Routine Cons 09/03/25 19:26 Active Diet NPO (NOW) Diet 09/03/25 19:23 Active EKG (ED Only) Stat Exams 09/03/25 16:12 Draft US renal BI Stat Exams 09/03/25 18:28 Ordered XR chest 1V Stat Exams 09/03/25 16:12 Completed Acetone [Beta Hydroxybutyrate] Stat Lab 09/03/25 16:20 Completed Arterial Blood Gas Stat Lab 09/03/25 16:28 Completed B-Type Natriuretic Peptide Stat Lab 09/03/25 16:20 Completed Blood Culture (Lab) Stat Lab 09/03/25 16:35 Received CBC AM DRAW Lab 09/04/25 05:00 Ordered CBC AM DRAW Lab 09/05/25 05:00 Ordered CBC AM DRAW Lab 09/06/25 05:00 Ordered CBC Stat Lab 09/03/25 16:20 Completed Comprehensive Metabolic Panel Stat Lab 09/03/25 16:20 Completed Glycohemoglobin w (eAG) Routine Lab 09/03/25 19:27 Ordered Lactate (Lactic Acid) Stat Lab 09/03/25 16:20 Completed Magnesium Q4H Lab 09/03/25 23:30 Ordered Magnesium Q4H Lab 09/04/25 03:30 Ordered Magnesium Q4H Lab 09/04/25 07:30 Ordered Magnesium Q4H Lab 09/04/25 11:30 Ordered Magnesium Q4H Lab 09/04/25 15:30 Ordered Magnesium Q4H Lab 09/04/25 19:30 Ordered Magnesium Q4H Lab 09/04/25 23:30 Ordered Magnesium Q4H Lab 09/05/25 03:30 Ordered Magnesium Q4H Lab 09/05/25 07:30 Ordered Magnesium Q4H Lab 09/05/25 11:30 Ordered Magnesium Q4H Lab 09/05/25 15:30 Ordered Magnesium Q4H Lab 09/05/25 19:30 Ordered Magnesium Stat Lab 09/03/25 16:20 Completed Partial Thromboplastin Time Stat Lab 09/03/25 17:52 Completed Phosphorous Q4H Lab 09/04/25 03:30 Ordered Phosphorous Q4H Lab 09/04/25 07:30 Ordered Phosphorous Q4H Lab 09/04/25 11:30 Ordered Phosphorous Q4H Lab 09/04/25 15:30 Ordered Phosphorous Q4H Lab 09/04/25 19:30 Ordered Phosphorous Q4 Lab 09/04/25 23:30 Ordered Phosphorous Q4H Lab 09/05/25 03:30 Ordered Phosphorous Q4H Lab 09/05/25 07:30 Ordered Phosphorous Q4H Lab 09/05/25 11:30 Ordered Phosphorous Q4H Lab 09/05/25 15:30 Ordered Phosphorous Q4H Lab 09/05/25 19:30 Ordered Procalcitonin Stat Lab 09/03/25 16:20 Completed Prothrombin Time with INR Stat Lab 09/03/25 17:52 Completed Renal Function Panel Q4 Lab 09/03/25 23:30 Ordered Renal Function Panel Q4 Lab 09/04/25 03:30 Ordered Renal Function Panel Q4 Lab 09/04/25 07:30 Ordered Renal Function Panel Q4 Lab 09/04/25 11:30 Ordered Renal Function Panel Q4 Lab 09/04/25 15:30 Ordered Renal Function Panel Q4 Lab 09/04/25 19:30 Ordered Renal Function Panel Q4 Lab 09/04/25 23:30 Ordered Renal Function Panel Q4 Lab 09/05/25 03:30 Ordered Renal Function Panel Q4 Lab 09/05/25 07:30 Ordered Renal Function Panel Q4 Lab 09/05/25 11:30 Ordered Renal Function Panel Q4 Lab 09/05/25 15:30 Ordered Renal Function Panel Q4 Lab 09/05/25 19:30 Ordered Troponin I Stat Lab 09/03/25 16:20 Completed Acetaminophen Tab [Tylenol Tab] Med 09/03/25 19:21 Active 650 mg PO Q6H PRN Dextrose 5%-Lactated Ringers [D5-Lr] 1,000 ml Med 09/03/25 19:26 Active Pot Chl Additive [KCl Additive] 20 meq IV 250 mls/hr Dextrose 5%-Lactated Ringers [D5-Lr] 1,000 ml Med 09/03/25 19:26 Active Pot Chl Additive [KCl Additive] 40 meq IV 250 mls/hr Dextrose 5%-Lactated Ringers [D5-Lr] 1,000 ml Med 09/03/25 19:26 Active IV 250 mls/hr Dextrose 50% Syr [D50w Syringe Abboject] Med 09/03/25 19:26 Active 25 ml IV PRNMRX1 PRN Famotidine Inj [Pepcid Inj] Med 09/03/25 16:12 Discontinued 20 mg IVP X1 ONE HYDROcodone*/APAP 5/325 [[place] 5/325] Med 09/03/25 19:21 Active 1 tab PO Q4HR PRN Heparin Inj Med 09/03/25 22:00 Active 5,000 unit SC Q8HR Insulin Reg 100 Units/100 ml [Myxredlin] Med 09/03/25 18:22 Active 100 unit in 100 ml IV 0.1 unit/kg/hr Insulin Regular Med 09/03/25 19:26 Discontinued 6.2 unit IV X1 ONE Magnesium Sulfate 2 GM Ivpb [Magnesium Sulfate Ivpb] Med 09/03/25 19:26 Active 2 gm in 50 ml IV 25 mls/hr Ondansetron Inj [Zofran Inj] Med 09/03/25 19:21 Active 4 mg IVP Q6H PRN Ondansetron Inj [Zofran Inj] Med 09/03/25 16:12 Discontinued 4 mg IVP X1 ONE POT PHOS 15 mMol in NS 250 ML [Pot Phos 15 mMol in NS Med 09/03/25 19:26 Active 250 ml] 15 mmol in 250 ml IV PRN POTASSIUM CHL 10 mEq IVPB [Kcl Ivpb] Med 09/03/25 19:26 Active 10 meq in 100 ml IV 100 mls/hr POTASSIUM CHL 10 mEq IVPB [Kcl Ivpb] Med 09/03/25 19:26 Active 10 meq in 100 ml IV PRN Pantoprazole [Protonix] Med 09/03/25 19:30 Active 40 mg PO QDAY Ringers Lactated 1000 ml [Lactated Ringers] 1,000 ml Med 09/03/25 19:26 Active Pot Chl Additive [KCl Additive] 20 meq IV 250 mls/hr Ringers Lactated 1000 ml [Lactated Ringers] 1,000 ml Med 09/03/25 19:26 Active Pot Chl Additive [KCl Additive] 40 meq IV 250 mls/hr Ringers Lactated 1000 ml [Lactated Ringers] 1,000 ml Med 09/03/25 19:26 Active IV 250 mls/hr Ringers Lactated 1000 ml [Lactated Ringers] 1,000 ml Med 09/03/25 16:13 Discontinued IV 999 mls/hr Ringers Lactated 1000 ml [Lactated Ringers] 1,000 ml Med 09/03/25 16:13 Discontinued IV 999 mls/hr Ringers Lactated 1000 ml [Lactated Ringers] 1,000 ml Med 09/03/25 18:22 Discontinued IV 999 mls/hr Sodium Bicarb 8.4% SYR Med 09/03/25 19:26 Active 50 ml IV Q4HR PRN Sodium Chloride 0.9% 250 ml [Ns] 250 ml Med 09/03/25 19:26 Active Sod Phos Additive [NaPhos Additive] 15 mmol IV 62.5 mls/hr Code Status Routine Oth 09/03/25 19:21 Ordered Oxygen Delivery DAILY RT 09/03/25 19:23 Active Vital Signs Vital signs: Vital Signs Temperature 97.7 F 09/03/25 15:50 Pulse Rate 131 H 09/03/25 15:50 Respiratory Rate 18 09/03/25 15:50 Blood Pressure 99/62 09/03/25 15:50 Pulse Oximetry (%) 100 09/03/25 15:50 Oxygen Delivery Method Room Air 09/03/25 15:50 Critical Care Time Critical Care Time Critical Care Time: Yes Total Critical Care Time (min.): 45 Attestation: Critical Care Time The very real possibility of a deterioration of this patient's condition required the highest level of my preparedness for sudden, emergent intervention for the following systems: Cardiac and Metabolic. I provided critical care services, which included medication orders, frequent re-evaluations of the patient's condition and response to treatment, ordering and reviewing test results, and discussing the case with various consultants including: nursing staff, hospitalist, and more. The critical care time associated with the care of this patient was 45 minutes. Discharge Plan Plan Patient Disposition: Admit Acute Care w/in Hospital Problem List Clinical Impression: DKA (diabetic ketoacidosis), MANISH (acute kidney injury) MDM Narrative MDM hospital course (for use when minimal MDM required): 25-year-old male patient with significant history of type 1 diabetes mellitus, came in for evaluation regarding nausea and vomiting. Has been having nausea and vomiting, not feeling well, has been ongoing for the last 4 days, associated with generalized body weakness. Patient told me that he has been taking his insulin without fail. Patient admits to trying to stop methamphetamine abuse, last use yesterday. No fever noted no diarrhea. No other complaints noted. Was admitted here before for DKA. Patient CBC showed leukocytosis of 13.9 ABG showed pH of 7.34 pCO2 29 pO2 of 112 bicarb of 16 magnesium 3.5 beta-hydroxybutyrate more than 6.4 Pro-Jhon 0.68. Patient's creatinine today was noted to be 4 blood sugar above 600 Patient's sodium was noted to be 121, corrected sodium of 130. Potassium 4.5, chloride 73, CO2 17.1, anion gap 31 Patient was started on 3 L IV LR, and started on insulin drip. Patient will be admitted to ICU Spoke with hospitalist, who admitted the patient to ICU. Medication Administration(s) Medication Administration History Acetaminophen (Acetaminophen 325 Mg Tablet) 650 mg PO Q6H PRN PRN Reason: Fever >101.5 Stop: 10/03/25 19:20 Hydrocodone Bitart/Acetaminophen (Hydrocodone/Apap 5/325 Tablet) 1 tab PO Q4HR PRN PRN Reason: PAIN SCALE 4-10(Mod-Sev Stop: 09/08/25 19:20 Dextrose (Dextrose 50%-Water Inj 50 Ml Syringe) 25 ml IV PRNMRX1 PRN PRN Reason: Blood Sugar - Low Heparin Sodium (Porcine) (Heparin Sod Inj 5000 Unit/Ml Vial) 5,000 unit SC Q8HR OLIVIA Stop: 09/17/25 21:59 Insulin Human Regular (Myxredlin) 100 unit in 100 mls @ 6.169 mls/hr IV .[id number] PRN; Protocol PRN Reason: PER PROTOCOL Stop: 10/03/25 18:21 Potassium Chloride 20 meq/ (Dextrose/Lactated Ringer's) 1,010 mls @ 250 mls/hr IV .Q4H3M PRN PRN Reason: K LEVEL 3.3 TO 5.3 mM/L Stop: 10/03/25 19:25 Potassium Chloride 40 meq/ (Dextrose/Lactated Ringer's) 1,020 mls @ 250 mls/hr IV .Q4H5M PRN PRN Reason: K LEVEL < 3.3mM/L Stop: 10/03/25 19:25 Potassium Chloride (Kcl Ivpb) 10 meq in 100 mls @ 100 mls/hr IV .Q1H PRN PRN Reason: IF POTASSIUM LESS THAN 3.3 Stop: 10/03/25 19:25 Magnesium Sulfate (Magnesium Sulfate Ivpb) 2 gm in 50 mls @ 25 mls/hr IV .Q2H PRN PRN Reason: PER DKA PROTOCOL Stop: 10/03/25 19:25 Dextrose/Lactated Ringer's (D5-Lr) 1,000 mls @ 250 mls/hr IV .Q4H PRN PRN Reason: PER PROTOCOL Stop: 10/03/25 19:25 Lactated Ringer's (Lactated Ringers) 1,000 mls @ 250 mls/hr IV .Q4H PRN PRN Reason: PER PROTOCOL Stop: 09/04/25 19:25 Last Admin: 09/03/25 19:58 Dose: 250 mls/hr Documented By: DT Potassium Chloride 20 meq/ (Lactated Ringer's) 1,010 mls @ 250 mls/hr IV .Q4H3M PRN PRN Reason: K LEVEL 3.3 TO 5.3mM/L Stop: 10/03/25 19:25 Potassium Chloride 40 meq/ (Lactated Ringer's) 1,020 mls @ 250 mls/hr IV .Q4H5M PRN PRN Reason: K LEVEL < 3.3 mM/L Stop: 10/03/25 19:25 Potassium Chloride (Kcl Ivpb) 10 meq in 100 mls @ 50 mls/hr IV PRN PRN PRN Reason: K LEVEL 3.3 to 5.3 & BG > 200 Stop: 10/03/25 19:25 Potassium Phosphate (Pot Phos 15 Mmol In Ns 250 Ml) 15 mmol in 250 mls @ 62.5 mls/hr IV PRN PRN PRN Reason: Phosphate <= 1mg/dL Stop: 10/03/25 19:25 Sodium Phosphate 15 mmol/ (Sodium Chloride) 255 mls @ 62.5 mls/hr IV .Q4H5M PRN PRN Reason: Phosphate <= 1mg/dL and K> than 5.3 Stop: 10/03/25 19:25 Ceftriaxone Sodium/Dextrose (Rocephin/D5w 1gm Iv Premix) 1 gm in 50 mls @ 100 mls/hr IV QDAY OLIVIA Stop: 09/10/25 20:27 Morphine Sulfate (Morphine Sulf Inj 4 Mg/Ml Vial) 2 mg IVP Q4HR PRN PRN Reason: BREAKTHROUGH PAIN (SEVERE) Last Admin: 09/03/25 20:02 Dose: 2 mg Documented By: SHAMIR Ondansetron HCl (Ondansetron Inj 2 Mg/Ml Inj 2 Ml) 4 mg IVP Q6H PRN; Protocol PRN Reason: NAUSEA OR VOMITING Stop: 10/03/25 19:20 Last Admin: 09/03/25 20:00 Dose: 4 mg Documented By: SHAMIR Pantoprazole Sodium (Pantoprazole 40 Mg Tablet) 40 mg PO QDAY OLIVIA Stop: 10/03/25 19:29 Last Admin: 09/03/25 20:02 Dose: 40 mg Documented By: SHAMIR Pregabalin (Pregabalin 75 Mg Capsule) 225 mg PO BID [facility] Stop: 10/03/25 20:59 Risperidone (Risperidone 1 Mg Tablet) 2 mg PO QDAY [facility] Stop: 10/04/25 08:59 Sodium Bicarbonate (Sodium Bicarb Inj 8.4% Syr 50 Ml Syringe) 50 ml IV Q4HR PRN PRN Reason: For ph <= to 7.0 Stop: 10/03/25 19:25 Trazodone HCl (Trazodone Hcl 50 Mg Tablet) 50 mg PO HS [facility] Stop: 10/03/25 20:59 Discontinued Medications Famotidine (Famotidine Inj 10 Mg/Ml Vial 2 Ml) 20 mg IVP X1 ONE Stop: 09/03/25 16:13 Last Admin: 09/03/25 17:27 Dose: 20 mg Documented By: BAILEY Lactated Ringer's (Lactated Ringers) 1,000 mls @ 999 mls/hr IV .Q1H1M ONE Stop: 09/03/25 17:13 Last Infusion: 09/03/25 18:14 Dose: Infused Documented By: Admin: 09/03/25 16:24 Dose: 999 mls/hr Documented By: ERLINDA Lactated Ringer's (Lactated Ringers) 1,000 mls @ 999 mls/hr IV .Q1H1M ONE Stop: 09/03/25 17:13 Last Infusion: 09/03/25 18:15 Dose: Infused Documented By: Admin: 09/03/25 16:24 Dose: 999 mls/hr Documented By: ERLINDA Lactated Ringer's (Lactated Ringers) 1,000 mls @ 999 mls/hr IV .Q1H1M ONE Stop: 09/03/25 19:22 Last Infusion: 09/03/25 19:31 Dose: Infused Documented By: Admin: 09/03/25 18:30 Dose: 999 mls/hr Documented By: LINDA Insulin Human Regular (Insulin Hum Regular 1 Unit/0.01 Ml (Per Unit)) 6.2 unit 0.1 unit/kg (6.2 unit) IV X1 ONE Stop: 09/03/25 19:27 Last Admin: 09/03/25 20:03 Dose: 6.2 unit Documented By: SHAMIR Co-signed By: URIAH Ondansetron HCl (Ondansetron Inj 2 Mg/Ml Inj 2 Ml) 4 mg IVP X1 ONE; Protocol Stop: 09/03/25 16:13 Last Admin: 09/03/25 17:27 Dose: 4 mg Documented By: BAILEY Diagnosis Differential Diagnosis ED Complaint MDM: Vomiting, dehydration, DKA, MANISH Diagnoses ruled out and/or further discussions: MANISH, DKA
[2025-09-03] MEDS: RINGERS LACTATED 1000 ML 1,000 ML 999 ML IV ×3 (16:24→18:30)
[2025-09-03 16:34] LABS: Base Excess -9 (-3-3); HCO3 16 mEq/L (20-26); Inspired Oxygen, FIO2 21 %; O2 Saturation 98 % (91-98); PCO2 29 mmHg (32.0-48.0); PO2 112 mmHg (83-108); pH, Arterial 7.34 (7.35-7.45)
[2025-09-03 16:35] LABS: Allen Test Performed/OK; Puncture Site Right Radial
[2025-09-03 16:44] LABS: Lactate (Lactic Acid) 2.6 mMol/L (0.4-2.0)
[2025-09-03 16:49] LABS: Basophils # (Auto) 0.0 Thou/mm3 (0.0-0.2); Basophils % (Auto) 0 % (0-2.5); Eosinophils # (Auto) 0.0 Thou/mm3 (0.0-0.5); Eosinophils % (Auto) 0 % (0-10); Hematocrit 42.6 % (41.0-53.0); Hemoglobin 15.0 g/dL (13.5-16.0); Immature Granulocytes Auto 0.07 Thou/mm3 (0.00-0.00); Lymphocytes # (Auto) 0.8 Thou/mm3 (1.0-4.8); Lymphocytes % (Auto) 6 % (10-50); Mean Corpuscular HGB Conc 35.2 g/dl (31.0-37.0); Mean Corpuscular Hemoglobin 31.1 pg (25.0-35.0); Mean Corpuscular Volume 88 fL (80-100); Monocytes # (Auto) 0.5 Thou/mm3 (0.0-0.8); Monocytes % (Auto) 4 % (0-12); Neutrophils # (Auto) 12.4 Thou/mm3 (1.8-7.7); Neutrophils % (Auto) 89 % (37-80); Nucleated Red Blood Cell # 0.00 Thou/mm3 (0.00-0.00); Nucleated Red Blood Cell % 0 /100 WBC (0); Platelet Count 418 Thou/mm3 (140-440); RDW Standard Deviation 40.0 fL (35.1-43.9); Red Blood Count 4.82 Miln/mm3 (4.50-5.90); White Blood Count 13.9 Thou/mm3 (3.8-10.6)
[2025-09-03 16:56] LABS: Beta Hydroxybutyrate > 6.4 mmol/L (<0.6)
[2025-09-03 17:15] LABS: B-Type Natriuretic Peptide < 20 pg/mL (0-100)
[2025-09-03] MEDS: ONDANSETRON INJ 2 MG/ML INJ 2 ML 4 MG IVP ×2 (17:27→20:00)
[2025-09-03] MEDS: FAMOTIDINE INJ 10 MG/ML VIAL 2 ML 20 MG IVP (17:27)
[2025-09-03 17:48] LABS: Alanine Aminotransferase 19 U/L (10-49); Albumin, Serum 5.0 gm/dL (3.5-5.0); Albumin/Globulin Ratio 1.7 (1.2-2.2); Alkaline Phosphatase 124 U/L (46-116); Anion Gap 31 (7-16); Aspartate Amino Transferase 15 U/L (0-34); BUN/Creatinine Ratio 17 Ratio (12-20); Bilirubin,Total 1.1 mg/dL (0.3-1.2); Blood Urea Nitrogen 68 mg/dL (9-23); Calcium 9.4 mg/dL (8.3-10.6); Calcium (Corrected) 9.4 mg/dL (8.5-10.1); Carbon Dioxide 17.1 mMol/L (20.0-31.0); Chloride 73 mMol/L (98-107); Creatinine (Component) 4.0 mg/dL (0.6-1.3); Estimated Creatinine Clearance 22.3 mL/min (>60); Globulin 3.0 gm/dL (2.3-3.5); Magnesium 3.5 mg/dL (1.6-2.6); Osmolality,Calculated 296 (275-295); Potassium 4.5 mMol/L (3.4-5.1); Procalcitonin 0.68 ng/ml (0.0-0.49); Sodium 121 mMol/L (136-145); Total Protein 8.0 gm/dL (5.7-8.2); Troponin I < 0.020 ng/mL (0.0-0.045); eGFR 20 See Note
[2025-09-03 17:51] LABS: Glucose 692 mg/dL (74-106)
--- NOTE | 2025-09-03 18:28 | XR_ITS ---
Examination: Retroperitoneal ultrasound, complete Technique: Multiple high resolution grayscale images of the retroperitoneum obtained, including kidneys and bladder. Exam date and time: September 03, 2025, 0810 hours INDICATIONS: Epigastric flank pain beginning 4 days ago FINDINGS: Right kidney 10.7 cm renal cortex 2.0 cm Left kidney 10.2 cm renal cortex 2.4 cm Minimal dilatation of the renal calyces No renal calculi No bladder mass Bladder prevoid volume 877, unable to void No prostatomegaly IMPRESSION: Minimal dilatation of the renal calyces, consider urinary tract infection
[2025-09-03 19:11] LABS: INR 0.9 (0.9-1.3); Partial Thromboplastin Time 22.8 Seconds (22.0-36.0); Prothrombin Time 9.8 Seconds (9.0-12.2)
--- NOTE | 2025-09-03 19:20 | PD.RESHP ---
Documentation for date of: 09/03/25 [facility] History of Present Illness History of present illness: Patient is a 25-year-old male with a past medical history of diabetes mellitus type 1, neuropathy, anxiety, depression, and substance abuse disorder who presented to the ER complaining of abdominal pain. Patient reported that he has been feeling unwell for the past 4 days, had subjective complaint of fever this morning, has been complaining of abdominal pain and nausea/vomiting and headache for the past 2 to 4 days. Reported his reason for visit to the ER is severe abdominal pain. Patient has not been able to keep even fluids down reported multiple episodes of nausea. Reported he has had past hospital admissions for DKA, and symptoms this admission feel like previous episodes of DKA. Patient denied any noncompliance with insulin, reported he has been taking his insulin as prescribed which is 22 units insulin Lantus every night and 10 units NovoLog 3 times a day. Patient does have a freestyle melanie which fell off this morning, reported it has been reading Hi for the past week, despite insulin. as well as he has been trying to wean off from methamphetamine since last week, but he relapsed today, and took meth amphetamine today. Denied alcohol use denied other illicit substance use. Reported abdominal pain is diffuse and generalized, but more pronounced in the left flank, there is slight tenderness on palpation during physical exam, but negative rebound tenderness. Patient denied any chest pain, hematemesis, melena, seizures. ER course: Initial labs in the ER showed leukocytosis, WBC 13.9, hemoglobin 15, platelets 418, CHEM panel shows hyponatremia sodium 121, potassium 4.5, chloride 73 bicarb 17.1, anion gap 31, BUN 68, creatinine 4.0, glucose 692, lactic acid 2.6, magnesium 3.5, alkaline phosphatase 124, troponin and BNP within normal limit, BHB more than 6.4, Pro-Jhon 0.68. Urinalysis is concerning for glucosuria and pyuria. Chest x-ray showed no active disease, EKG shows sinus tachycardia urine drug screen positive for meth, cocaine and marijuana. In the ER, patient was given 3 L IV fluid boluses, famotidine x 1, ondansetron x 1, and started on insulin gtt. PMH: As noted above Past Surgical Hx: No pertinent surgical history Social Hx: Endorses history of smoking, meth, cocaine, marijuana abuse, denies alcohol abuse . Review of Systems Review of Systems Systems Reviewed: All systems reviewed, normal except as documented Narrative Review of Systems: Positive symptoms including numbness right big toe, nausea vomiting, severe abdominal pain more localized to left flank. Headache. Urinary discomfort and burning. Past Medical History Past Medical History NEUROLOGIC: Positive Peripheral Neuropathy CARDIAC: Positive Hypertension; Negative Congestive Heart Failure RESPIRATORY: Negative Chronic Obstructive Pulmonary Disease (COPD) GENITOURINARY: Negative Renal Disease ENDOCRINE: Positive Diabetes Mellitus Type 1; Negative Diabetes Mellitus Type 2 PSYCHO/SOCIAL: Positive Anxiety Social History SMOKING STATUS: Current every day smoker SECOND HAND EXPOSURE: No SUBSTANCE USE: marijuana (weekend use) Exam Vital Signs Temp Pulse Resp BP Pulse Ox O2 Del Method 97.8 F 130 H 20 120/74 99 Room Air 09/03/25 18:55 09/03/25 18:55 09/03/25 18:55 09/03/25 18:55 09/03/25 18:55 09/03/25 18:55 Narrative Exam General: AOx3, cooperative, currently in mild distress due to abdominal pain Skin: Intact, no cyanosis or edema noted. Noted slight discoloration scarring over the knuckles. HEENT: Atraumatic/normocephalic, VANITA, neck supple Heart: RRR, S1 and S2 without clicks or murmurs, tachycardic Lungs: Clear on auscultation bilaterally, no difficulty breathing Abdomen: Soft, nontender. Bowel sounds present . Vascular: Peripheral pulses palpable Neuro: No focal neurological deficits noted. Results: Labs 09/04/25 03:42 09/04/25 03:42 Labs: Short CBC 09/03/25 Range/Units 16:20 WBC 13.9 H (3.8-10.6) Thou/mm3 Hgb 15.0 (13.5-16.0) g/dL Hct 42.6 (41.0-53.0) % Plt Count 418 (140-440) Thou/mm3 BMP 09/03/25 16:20 Sodium 121 L Potassium 4.5 Chloride 73 L* Carbon Dioxide 17.1 L BUN 68 H Creatinine 4.0 H Glucose 692 H* Calcium 9.4 Cardiac Enzymes 09/03/25 Range/Units 16:20 Troponin I < 0.020 (0.0-0.045) ng/mL Liver Function 09/03/25 Range/Units 16:20 Total Bilirubin 1.1 (0.3-1.2) mg/dL AST 15 (0-34) U/L ALT 19 (10-49) U/L Alkaline Phosphatase 124 H (46-116) U/L Albumin 5.0 (3.5-5.0) gm/dL ABG Interpretation ABG results: 09/03/25 16:28 ABG pH 7.34 L ABG pCO2 29 L ABG pO2 112 H ABG HCO3 16 L ABG O2 Saturation 98 ABG Base Excess -9 L Quality Measures Quality Measures VTE prophylaxis Medications Home Medications and Allergies Home Medications ?Medication ?Instructions ?Recorded ?Confirmed ?Type insulin lispro 100 unit/mL 10 unit subcut TID 07/26/20 09/03/25 History subcutaneous solution (Humalog U-100 Insulin) chlorthalidone 25 mg tablet 25 mg PO QDAY PRN swelling 08/01/24 09/03/25 History enalapril maleate 2.5 mg tablet 5 mg PO BID 08/01/24 09/03/25 History flash glucose sensor (FreeStyle 08/01/24 09/03/25 History Melanie 2 Sensor kit) escitalopram oxalate 20 mg tablet 20 mg PO QDAY 09/03/25 09/03/25 History insulin aspart U-100 100 unit/mL 10 unit subcut TID 09/03/25 09/03/25 History (3 mL) subcutaneous pen (Novolog FlexPen U-100 Insulin aspart) insulin glargine 100 unit/mL (3 22 unit subcut HS 09/03/25 09/03/25 History mL) subcutaneous pen (Basaglar KwikPen U-100 Insulin) meloxicam 7.5 mg tablet 7.5 mg PO QDAY 09/03/25 09/03/25 History Held on 09/03/25. Instructions: Doctor's Order pregabalin 225 mg capsule (Lyrica) 225 mg PO BID 09/03/25 09/03/25 History risperidone 2 mg tablet 2 mg PO BID 09/03/25 09/03/25 History trazodone 100 mg tablet 50 mg PO .QHS 09/03/25 09/03/25 History Allergies Allergy/AdvReac Type Severity Reaction Status Date / Time No Known Allergies Allergy Verified 03/13/25 16:43 Visit Medications Insulin Human Regular (Myxredlin) 100 unit in 100 mls @ 6.169 mls/hr IV .[id number] PRN; Protocol PRN Reason: PER PROTOCOL Stop: 10/03/25 18:21 Lactated Ringer's (Lactated Ringers) 1,000 mls @ 999 mls/hr IV .Q1H1M ONE Stop: 09/03/25 19:22 Last Admin: 09/03/25 18:30 Dose: 999 mls/hr Discontinued Medications Famotidine (Famotidine Inj 10 Mg/Ml Vial 2 Ml) 20 mg IVP X1 ONE Stop: 09/03/25 16:13 Last Admin: 09/03/25 17:27 Dose: 20 mg Lactated Ringer's (Lactated Ringers) 1,000 mls @ 999 mls/hr IV .Q1H1M ONE Stop: 09/03/25 17:13 Last Infusion: 09/03/25 18:14 Dose: Infused Lactated Ringer's (Lactated Ringers) 1,000 mls @ 999 mls/hr IV .Q1H1M ONE Stop: 09/03/25 17:13 Last Infusion: 09/03/25 18:15 Dose: Infused Ondansetron HCl (Ondansetron Inj 2 Mg/Ml Inj 2 Ml) 4 mg IVP X1 ONE; Protocol Stop: 09/03/25 16:13 Last Admin: 09/03/25 17:27 Dose: 4 mg Assessment & Plan Plan The patient is a 25-year-old male with a past medical history of diabetes mellitus type 1, neuropathy, anxiety, depression, and substance abuse disorder who presented to the ER complaining of abdominal pain. Patient was admitted to ICU for management of diabetic ketoacidosis requiring insulin drip. 1.NEURO: ? Stable ? Patient is alert oriented x 4, does have history of psychiatric disorders including anxiety depression and substance abuse, active Home medications include pregabalin 225 mg twice daily, trazodone 50 mg, risperidone 2 mg and escitalopram, which will be resumed after med rec reconciliation. 2.CVS: #Sinus tachycardia EKG showed sinus tachycardia, likely in the setting of hypovolemia given poor oral hydration for the past 4 days, as well as diabetic ketoacidosis. Noted improvement in heart rate following IV fluid boluses. Denies any chest pain. Negative troponins and BNP. ? IV fluid resuscitation per DKA protocol. 3.PULM: ?Stable currently saturating well on room air. Chest x-ray shows no evidence of any active disease. 4.GI: #Abdominal pain Complaining of moderate to severe abdominal pain for the past 2 to 4 days, reported reason for coming to the ER is severe abdominal pain. Associated with nausea and vomiting. Denies history of alcohol abuse but does have history of meth cocaine and marijuana use. Currently complaining of abdominal pain generalized and diffuse, but more localized and tender below left rib cage/left flank. Patient denied any history of renal stones. ? Will get triglyceride levels and lipase, to rule out acute pancreatitis. Given patient's acute kidney injury, holding off on CT abdomen pelvis with contrast, will consider if downtrending creatinine with IV fluid resuscitation and continuous abdominal pain or elevated lipase. Proceed with bilateral renal ultrasound to rule out hydronephrosis. ? [place] 5 mg for moderate to severe pain, IV morphine 2 mg for breakthrough pain #Nausea vomiting In the setting of DKA, reported nausea for the past 4 days, a few episodes of vomiting, unable to keep food or drinks down. ? IV fluid resuscitation per DKA protocol ? IV Zofran as needed 5.Renal: #MANISH Likely prerenal etiology in the setting of dehydration, possible differentials include renal versus postrenal, given complaint of left flank pain symptoms of dysuria and subjective fever. Patient reported no baseline renal disorders, but does take enalapril for renal protection in the setting of uncontrolled DM type I. Noted proteinuria in UA, patient might require CT abdomen pelvis rule out pancreatitis, if continued downtrend in creatinine can consider CT abdomen pelvis with contrast. ? IV fluid boluses given in the ED ? Bilateral ultrasound renal ordered to rule out hydronephrosis ? Avoid nephrotoxic drugs, repeat renal panel ? Strict urine output monitoring ? Hold home medications enalapril and chlorthalidone in the setting of MANISH #High anion gap metabolic acidosis Noted anion gap 31, bicarb 17, high anion gap metabolic acidosis as well as lactic acidosis in the setting of DKA, started insulin gtt. Improvement expected following fluid resuscitation and insulin. repeat renal panel and blood gas per DKA protocol. 6.ENDOCRINE: #DKA Patient reported compliance with insulin regimen, diagnosed with type 1 diabetes mellitus few years ago, currently on insulin Lantus 22 units every night and 10 units NovoLog 3 times daily. Patient reported he has a freestyle melanie but it fell off today. Reported reading Hi over the past week. Denied noncompliance with medications. Patient does have subjective complaint of fever and urinary symptoms, as well as pyuria on UA, as well as history of substance abuse disorder likely contributed to nausea vomiting poor p.o. intake. ? DKA protocol initiated, on insulin gtt., will transition to long-acting insulin once anion gap closed x2 and patient able to tolerate p.o. diet. ? Monitor and replete electrolytes per DKA protocol ? A1c ordered ? Dietary consult. 7.INFECTIOUS: #UTI Patient does have subjective complaint of fever and urinary symptoms, and left flank pain as well as pyuria on UA, noted elevated procalcitonin, chest x-ray negative for evidence of pneumonia. ? Ultrasound bilateral renal to rule out hydronephrosis ? IV ceftriaxone 1 g daily ? Follow blood and urine cultures 8.HEME: #Leukocytosis, likely reactive in the setting of DKA, also possible due to UTI. 9.OTHER: #Cocaine, meth and marijuana abuse Patient reported he had been trying to wean himself off of methamphetamine, try to abstain for past 4 days, did report withdrawal symptoms including auditory hallucinations and anxiety. Reported that he took methamphetamine today. ? Monitor for withdrawal symptoms. ? Continue pregabalin 225 mg twice daily ? Will consider benzodiazepines if severe withdrawal symptoms. Disposition: ICU for insulin drip DVT prophylaxis: Heparin subcut GI prophylaxis: Protonix Diet: N.p.o. currently Lines: PIV CODE STATUS: Full Patient case discussed with attending Dr. Rhonda Rivera PGY3 Attending Provider Attestation/Addendum After examining patient and review of the clinical data patient was found to have high probability of imminent deterioration which required my direct management and intervention TOTAL CC TIME: 45 MIN TOTAL TIME: 45 Minutes of direct medical management and planning of care for DKA I Zack Ellis MD, attest that I was physically present for green portions of evaluation, and examined patient, labs and imagings and plan of care were discussed with IM residents team, and I agree with the findings and plans documented above.
[2025-09-03 19:42] LABS: Reflex Lactate? Y
[2025-09-03] MEDS: RINGERS LACTATED 1000 ML 1,000 ML 250 ML IV (19:58)
[2025-09-03 20:02] LABS: Lactic Acid, 3 HR 2.0 mMol/L (0.4-2.0)
[2025-09-03] MEDS: PANTOPRAZOLE 40 MG TABLET PO (20:02)
[2025-09-03] MEDS: MORPHINE SULF INJ 4 MG/ML VIAL 2 MG IVP (20:02)
[2025-09-03] MEDS: INSULIN HUM REGULAR 1 UNIT/0.01 ML (PER UNIT) 6.2 UNIT IV (20:03)
[2025-09-03] MEDS: INSULIN REG 100 UNITS/100 ML 100 UNIT/100 ML BAG 6.169 UNIT IV (20:59)
[2025-09-03] MEDS: POTASSIUM CHL 10 mEq IVPB 10 MEQ/100 ML BAG 50 MEQ IV ×2 (21:10→23:05)
[2025-09-03] MEDS: PREGABALIN 75 MG CAPSULE 225 MG PO (21:20)
[2025-09-03] MEDS: cefTRIAXone/D5w 1gm IV premix 1 GM/50 ML BAG IV (21:21)
[2025-09-03] MEDS: HEPARIN SOD INJ 5000 UNIT/ML VIAL SC (21:22)
[2025-09-03 21:31] LABS: Base Excess, Venous -4 (-3-3); O2 Saturation, Venous 91 % (96-97); PCO2, Venous 33 mmHg (36-56); PO2, Venous 59 mmHg (15-58); pH, Venous 7.39 (7.33-7.66)
[2025-09-03 21:44] LABS: Alanine Aminotransferase 19 U/L (10-49); Albumin, Serum 5.1 gm/dL (3.5-5.0); Albumin/Globulin Ratio 2.0 (1.2-2.2); Alkaline Phosphatase 125 U/L (46-116); Anion Gap 33 (7-16); Aspartate Amino Transferase 14 U/L (0-34); BUN/Creatinine Ratio 17 Ratio (12-20); Bilirubin,Total 1.1 mg/dL (0.3-1.2); Blood Urea Nitrogen 66 mg/dL (9-23); Calcium 9.8 mg/dL (8.3-10.6); Calcium (Corrected) 9.8 mg/dL (8.5-10.1); Cardiac Risk Estimate 3.6 RATIO (4.0-6.7); Chloride 75 mMol/L (98-107); Cholesterol 196 mg/dL (132-200); Creatinine (Component) 4.0 mg/dL (0.6-1.3); Estimated Creatinine Clearance 22.3 mL/min (>60); Globulin 2.6 gm/dL (2.3-3.5); HDL Cholesterol 54 mg/dL (40-60); Lipase 34 U/L (12-53); Osmolality,Calculated 295 (275-295); Potassium 4.5 mMol/L (3.4-5.1); Sodium 122 mMol/L (136-145); Total Protein 7.7 gm/dL (5.7-8.2); Triglycerides 483 mg/dL (30-150); eGFR 20 See Note
[2025-09-03 21:46] LABS: Carbon Dioxide 14.2 mMol/L (20.0-31.0); Glucose 660 mg/dL (74-106)
[2025-09-03 21:49] LABS: Glucose Estimated Average 295 mg/dL (80-131); Hemoglobin A1C 11.9 % Hgb (4.8-6.0)
[2025-09-03 22:06] LABS: Phosphorous 3.7 mg/dL (2.4-5.1)
[2025-09-03] MEDS: DEXTROSE 5%-LACTATED RINGERS 1,000 ML 250 ML IV (23:00)
[2025-09-03] MEDS: HYDROcodone/APAP 5/325 TABLET 1 TAB PO (23:04)
[2025-09-04] VITALS (18 sets, daily range): BP systolic 104–164; BP diastolic 65–124; PULSE 100–135; RESP 6–100; TEMP 36.2–37.1; O2SAT 94–99; BMI 22.3
[2025-09-04 00:09] LABS: Amphetamine/Methamp Scrn,U Positive (Negative); Barbiturate Screen,Urine Negative (Negative); Benzodiazepines Screen,Urine Negative (Negative); Benzoylecgonine Screen, Ur Negative (Negative); Fentanyl Screen,Urine Negative (Negative); Opiate Screen,Urine Negative (Negative); THC Screen,Urine Negative (Negative)
[2025-09-04 00:20] LABS: Albumin, Serum 4.2 gm/dL (3.5-5.0); Anion Gap 14 (7-16); BUN/Creatinine Ratio 12 Ratio (12-20); Blood Urea Nitrogen 30 mg/dL (9-23); Calcium 8.9 mg/dL (8.3-10.6); Calcium (Corrected) 8.9 mg/dL (8.5-10.1); Carbon Dioxide 23.9 mMol/L (20.0-31.0); Chloride 94 mMol/L (98-107); Creatinine (Component) 2.6 mg/dL (0.6-1.3); Estimated Creatinine Clearance 34.3 mL/min (>60); Glucose 154 mg/dL (74-106); Magnesium 2.7 mg/dL (1.6-2.6); Osmolality,Calculated 273 (275-295); Phosphorous 2.9 mg/dL (2.4-5.1); Potassium 3.9 mMol/L (3.4-5.1); Sodium 132 mMol/L (136-145); eGFR 34 See Note
[2025-09-04] MEDS: MORPHINE SULF INJ 4 MG/ML VIAL 2 MG IVP ×2 (01:58→20:24)
[2025-09-04] MEDS: DEXTROSE 5%-LACTATED RINGERS 1,000 ML 250 ML IV ×2 (02:53→06:51)
[2025-09-04 04:09] LABS: Basophils # (Auto) 0.0 Thou/mm3 (0.0-0.2); Basophils % (Auto) 0 % (0-2.5); Eosinophils # (Auto) 0.0 Thou/mm3 (0.0-0.5); Eosinophils % (Auto) 0 % (0-10); Hematocrit 36.0 % (41.0-53.0); Hemoglobin 13.1 g/dL (13.5-16.0); Immature Granulocytes Auto 0.05 Thou/mm3 (0.00-0.00); Lymphocytes # (Auto) 1.5 Thou/mm3 (1.0-4.8); Lymphocytes % (Auto) 13 % (10-50); Mean Corpuscular HGB Conc 36.4 g/dl (31.0-37.0); Mean Corpuscular Hemoglobin 31.9 pg (25.0-35.0); Mean Corpuscular Volume 88 fL (80-100); Monocytes # (Auto) 1.0 Thou/mm3 (0.0-0.8); Monocytes % (Auto) 9 % (0-12); Neutrophils # (Auto) 8.9 Thou/mm3 (1.8-7.7); Neutrophils % (Auto) 78 % (37-80); Nucleated Red Blood Cell # 0.00 Thou/mm3 (0.00-0.00); Nucleated Red Blood Cell % 0 /100 WBC (0); Platelet Count 307 Thou/mm3 (140-440); RDW Standard Deviation 39.4 fL (35.1-43.9); Red Blood Count 4.11 Miln/mm3 (4.50-5.90); White Blood Count 11.5 Thou/mm3 (3.8-10.6)
[2025-09-04 04:35] LABS: Albumin, Serum 4.1 gm/dL (3.5-5.0); Anion Gap 8 (7-16); BUN/Creatinine Ratio 14 Ratio (12-20); Blood Urea Nitrogen 31 mg/dL (9-23); Calcium 8.9 mg/dL (8.3-10.6); Calcium (Corrected) 8.9 mg/dL (8.5-10.1); Carbon Dioxide 30.4 mMol/L (20.0-31.0); Chloride 98 mMol/L (98-107); Creatinine (Component) 2.2 mg/dL (0.6-1.3); Estimated Creatinine Clearance 40.6 mL/min (>60); Glucose 139 mg/dL (74-106); Magnesium 2.6 mg/dL (1.6-2.6); Osmolality,Calculated 280 (275-295); Phosphorous 2.8 mg/dL (2.4-5.1); Potassium 3.8 mMol/L (3.4-5.1); Sodium 136 mMol/L (136-145); eGFR 41 See Note
[2025-09-04] MEDS: HEPARIN SOD INJ 5000 UNIT/ML VIAL SC ×3 (05:26→21:25)
[2025-09-04] MEDS: ONDANSETRON INJ 2 MG/ML INJ 2 ML 4 MG IVP ×2 (07:40→12:06)
[2025-09-04] MEDS: PREGABALIN 75 MG CAPSULE 225 MG PO ×2 (07:41→20:11)
[2025-09-04] MEDS: PANTOPRAZOLE 40 MG TABLET PO (07:41)
[2025-09-04] MEDS: cefTRIAXone/D5w 1gm IV premix 1 GM/50 ML BAG IV (07:41)
[2025-09-04] MEDS: INSULIN DEGLUDEC 5 UNIT/0.05 ML (PER 5 UNITS) 10 UNIT SC (07:42)
[2025-09-04] MEDS: ACETAMINOPHEN 325 MG TABLET 650 MG PO (07:51)
--- NOTE | 2025-09-04 10:53 | PD.RESPRO ---
Documentation for date of: 09/04/25 Subjective Subjective Interval history: Patient is a 25-year-old male with a past medical history of diabetes mellitus type 1, neuropathy, anxiety, depression, and substance abuse disorder who presented to the ER complaining of abdominal pain. Patient reported that he has been feeling unwell for the past 4 days, had subjective complaint of fever this morning, has been complaining of abdominal pain and nausea/vomiting and headache for the past 2 to 4 days. Reported his reason for visit to the ER is severe abdominal pain. Patient has not been able to keep even fluids down reported multiple episodes of nausea. Reported he has had past hospital admissions for DKA, and symptoms this admission feel like previous episodes of DKA. Patient denied any noncompliance with insulin, reported he has been taking his insulin as prescribed which is 22 units insulin Lantus every night and 10 units NovoLog 3 times a day. Patient does have a freestyle teo which fell off this morning, reported it has been reading Hi for the past week, despite insulin. as well as he has been trying to wean off from methamphetamine since last week, but he relapsed today, and took meth amphetamine today. Denied alcohol use denied other illicit substance use. Reported abdominal pain is diffuse and generalized, but more pronounced in the left flank, there is slight tenderness on palpation during physical exam, but negative rebound tenderness. Patient denied any chest pain, hematemesis, melena, seizures. 08/27/2025: Patient was seen and examined bedside's morning. No acute overnight events. Patient standing at this point had a right closed twice. Patient having some pleuritic chest pain, chest x-ray was unremarkable and troponins were negative. Gave patient some Tylenol at this time. Otherwise no other complaints at this time. Patient will be downgraded to medical floors. Exam Vital Signs Temp Pulse Resp BP Pulse Ox O2 Del Method 97.1 F 132 H 13 104/65 94 L Room Air 09/04/25 07:00 09/04/25 10:00 09/04/25 10:00 09/04/25 10:00 09/04/25 10:00 09/04/25 07:00 Narrative Exam Gen: A&O X 3, NAD HEENT: NCAT, EOMI, Pupils reactive ESSENCE, not icteric. External ears normal. No rhinorrhea. Moist mucous membranes. Neck: Supple, full range of motion, no observable masses, No meningeal sign. Lungs: No Respiratory distress, clear bilateral. CV: RRR, no murmurs. Abdomen: Soft, nondistended, No rebound tenderness. MSK: No joint swelling, no redness, peripheral pulses presents, no peripheral edema. Skin: No rashes, petechiae, lesions. Neuro: No focal neurological deficits appreciated, sensory and motor intact. Psych: Flat affect Objective Labs 09/05/25 05:05 09/05/25 05:05 Labs: Laboratory Results - last 24 hr 09/03/25 09/03/25 09/03/25 16:20 16:28 17:52 WBC 13.9 H RBC 4.82 Hgb 15.0 Hct 42.6 MCV 88 MCH 31.1 MCHC 35.2 RDW Std Deviation 40.0 Plt Count 418 Neut % (Auto) 89 H Lymph % (Auto) 6 L [place] % (Auto) 4 Eos % (Auto) 0 Baso % (Auto) 0 Neut # (Auto) 12.4 H Lymph # (Auto) 0.8 L [place] # (Auto) 0.5 Eos # (Auto) 0.0 Baso # (Auto) 0.0 Immature Gran # (Auto) 0.07 H Absolute Nucleated RBC 0.00 Immature Gran % 1 H Nucleated RBC % 0 PT 9.8 INR 0.9 APTT 22.8 Puncture Site Right Radial ABG pH 7.34 L ABG pCO2 29 L ABG pO2 112 H ABG HCO3 16 L ABG O2 Saturation 98 ABG Base Excess -9 L VBG pH VBG pCO2 VBG pO2 VBG O2 Sat (Michael) VBG Base Excess FiO2 21 Sodium 121 L Potassium 4.5 Chloride 73 L* Carbon Dioxide 17.1 L Anion Gap 31 H BUN 68 H Creatinine 4.0 H Estim Creat Clear Calc 22.3 L eGFR 20 L BUN/Creatinine Ratio 17 Glucose 692 H* Estimated Ave Glu mg/dL Hemoglobin A1c Calculated Osmolality 296 H Lactic Acid 2.6 H Calcium 9.4 Corrected Calcium 9.4 Phosphorus Magnesium 3.5 H Total Bilirubin 1.1 AST 15 ALT 19 Alkaline Phosphatase 124 H Troponin I < 0.020 B-Natriuretic Peptide < 20 Total Protein 8.0 Albumin 5.0 Globulin 3.0 Albumin/Globulin Ratio 1.7 Triglycerides Cancelled Cholesterol Cancelled LDL Cholesterol, Calc Cancelled HDL Cholesterol Cancelled Cholesterol/HDL Ratio Cancelled Lipase Beta-Hydroxybutyrate/Acetoacetate > 6.4 H Procalcitonin 0.68 H Urine Opiates Screen Urine Fentanyl Screen Ur Barbiturates Screen U Amphetamin/Meth Scrn U Benzodiazepines Scrn U Cocaine Metab Screen U Marijuana (THC) Screen 09/03/25 09/03/25 09/03/25 19:52 20:25 20:48 WBC RBC Hgb Hct MCV MCH MCHC RDW Std Deviation Plt Count Neut % (Auto) Lymph % (Auto) [place] % (Auto) Eos % (Auto) Baso % (Auto) Neut # (Auto) Lymph # (Auto) [place] # (Auto) Eos # (Auto) Baso # (Auto) Immature Gran # (Auto) Absolute Nucleated RBC Immature Gran % Nucleated RBC % PT INR APTT Puncture Site ABG pH ABG pCO2 ABG pO2 ABG HCO3 ABG O2 Saturation ABG Base Excess VBG pH 7.39 VBG pCO2 33 L VBG pO2 59 H VBG O2 Sat (Michael) 91 L VBG Base Excess -4 L FiO2 Sodium 122 L Potassium 4.5 Chloride 75 L* Carbon Dioxide 14.2 L* Anion Gap 33 H BUN 66 H Creatinine 4.0 H Estim Creat Clear Calc 22.3 L eGFR 20 L BUN/Creatinine Ratio 17 Glucose 660 H* Estimated Ave Glu mg/dL 295 H Hemoglobin A1c 11.9 H Calculated Osmolality 295 Lactic Acid 2.0 Calcium 9.8 Corrected Calcium 9.8 Phosphorus 3.7 Magnesium Total Bilirubin 1.1 AST 14 ALT 19 Alkaline Phosphatase 125 H Troponin I B-Natriuretic Peptide Total Protein 7.7 Albumin 5.1 H Globulin 2.6 Albumin/Globulin Ratio 2.0 Triglycerides 483 H Cholesterol 196 LDL Cholesterol, Calc TNP HDL Cholesterol 54 Cholesterol/HDL Ratio 3.6 L Lipase 34 Beta-Hydroxybutyrate/Acetoacetate Procalcitonin Urine Opiates Screen Urine Fentanyl Screen Ur Barbiturates Screen U Amphetamin/Meth Scrn U Benzodiazepines Scrn U Cocaine Metab Screen U Marijuana (THC) Screen 09/03/25 09/03/25 09/04/25 23:15 23:37 03:42 WBC 11.5 H RBC 4.11 L Hgb 13.1 L Hct 36.0 L MCV 88 MCH 31.9 MCHC 36.4 RDW Std Deviation 39.4 Plt Count 307 D Neut % (Auto) 78 Lymph % (Auto) 13 [place] % (Auto) 9 Eos % (Auto) 0 Baso % (Auto) 0 Neut # (Auto) 8.9 H Lymph # (Auto) 1.5 [place] # (Auto) 1.0 H Eos # (Auto) 0.0 Baso # (Auto) 0.0 Immature Gran # (Auto) 0.05 H Absolute Nucleated RBC 0.00 Immature Gran % 0 Nucleated RBC % 0 PT INR APTT Puncture Site ABG pH ABG pCO2 ABG pO2 ABG HCO3 ABG O2 Saturation ABG Base Excess VBG pH VBG pCO2 VBG pO2 VBG O2 Sat (Michael) VBG Base Excess FiO2 Sodium 132 L D 136 Potassium 3.9 D 3.8 Chloride 94 L 98 Carbon Dioxide 23.9 30.4 Anion Gap 14 8 BUN 30 H 31 H Creatinine 2.6 H D 2.2 H Estim Creat Clear Calc 34.3 L 40.6 L eGFR 34 L 41 L BUN/Creatinine Ratio 12 14 Glucose 154 H D [address] Glu mg/dL Hemoglobin A1c Calculated Osmolality 273 L 280 Lactic Acid Calcium 8.9 8.9 Corrected Calcium 8.9 8.9 Phosphorus 2.9 2.8 Magnesium 2.7 H 2.6 Total Bilirubin AST ALT Alkaline Phosphatase Troponin I B-Natriuretic Peptide Total Protein Albumin 4.2 D 4.1 Globulin Albumin/Globulin Ratio Triglycerides Cholesterol LDL Cholesterol, Calc HDL Cholesterol Cholesterol/HDL Ratio Lipase Beta-Hydroxybutyrate/Acetoacetate Procalcitonin Urine Opiates Screen Negative Urine Fentanyl Screen Negative Ur Barbiturates Screen Negative U Amphetamin/Meth Scrn Positive A U Benzodiazepines Scrn Negative U Cocaine Metab Screen Negative U Marijuana (THC) Screen Negative ABG Interpretation ABG results: 09/03/25 09/03/25 16:28 20:25 ABG pH 7.34 L ABG pCO2 29 L ABG pO2 112 H ABG HCO3 16 L ABG O2 Saturation 98 ABG Base Excess -9 L VBG pH 7.39 VBG pCO2 33 L VBG pO2 59 H VBG Base Excess -4 L Quality Measures Quality Measures none Assessment & Plan Assessment Current Active Medications: Generic Name Dose Route Start Last Admin Trade Name Freq PRN Reason Stop Dose Admin Acetaminophen 650 mg 09/03/25 19:21 09/04/25 07:51 Acetaminophen 325 Mg Tablet PO 10/03/25 19:20 650 mg Q6H PRN Administration Fever >101.5 Hydrocodone Bitart/Acetaminophen 1 tab 09/03/25 19:21 09/03/25 23:04 Hydrocodone/Apap 5/325 Tablet PO 09/08/25 19:20 1 tab Q4HR PRN Administration PAIN SCALE 4-10(Mod-Sev Dextrose 25 ml 09/03/25 19:26 Dextrose 50%-Water Inj 50 Ml Syringe IV [id number] PRN Blood Sugar - Low Dextrose 25 ml 09/04/25 10:05 Dextrose 50%-Water Inj 50 Ml Syringe IV 10/04/25 10:04 Q15MIN PRN BG 50-70 responsive npo pt Dextrose 50 ml 09/04/25 10:05 Dextrose 50%-Water Inj 50 Ml Syringe IV 10/04/25 10:04 Q15MIN PRN BG <50 OR BG <70 & pt unresponsive Glucagon 1 mg 09/04/25 10:05 Glucagon Inj 1 Mg Vial IM Q15MIN PRN BG <70, and no IV access Heparin Sodium (Porcine) 5,000 unit 09/03/25 22:00 09/04/25 05:26 Heparin Sod Inj 5000 Unit/Ml Vial SC 09/17/25 21:59 5,000 unit Q8HR OLIVIA Administration Insulin Human Regular 100 unit in 100 mls @ 6.169 mls/hr 09/03/25 18:22 09/04/25 09:00 Myxredlin IV 10/03/25 18:21 0 unit/kg/hr .[id number] PRN 0 mls/hr PER PROTOCOL Titration Protocol 0.1 UNIT/KG/HR Ceftriaxone Sodium/Dextrose 1 gm in 50 mls @ 100 mls/hr 09/03/25 20:28 09/04/25 07:41 Rocephin/D5w 1gm Iv Premix IV 09/10/25 20:27 50 mls/hr QDAY OLIVIA Administration Insulin Degludec 10 unit 09/04/25 07:30 09/04/25 07:42 Insulin Degludec 5 Unit/0.05 Ml (Per 5 Units) SC 10/04/25 07:29 10 unit QDAY OLIVIA Administration Insulin Human Lispro 0 unit 09/04/25 11:30 Insulin Lispro (Admelog) 1 Unit/0.01 Ml Unit SC 10/04/25 11:29 AC OLIVIA Protocol Morphine Sulfate 2 mg 09/03/25 19:39 09/04/25 01:58 Morphine Sulf Inj 4 Mg/Ml Vial IVP 2 mg Q4HR PRN Administration BREAKTHROUGH PAIN (SEVERE) Ondansetron HCl 4 mg 09/03/25 19:21 09/04/25 07:40 Ondansetron Inj 2 Mg/Ml Inj 2 Ml IVP 10/03/25 19:20 4 mg Q6H PRN Administration NAUSEA OR VOMITING Protocol Pantoprazole Sodium 40 mg 09/03/25 19:30 09/04/25 07:41 Pantoprazole 40 Mg Tablet PO 10/03/25 19:29 40 mg QDAY OLIVIA Administration Pregabalin 225 mg 09/03/25 21:00 09/04/25 07:41 Pregabalin 75 Mg Capsule PO 10/03/25 20:59 225 mg BID OLIVIA Administration Risperidone 2 mg 09/04/25 09:00 09/04/25 07:41 Risperidone 1 Mg Tablet PO 10/04/25 08:59 2 mg QDAY OLIVIA Administration Trazodone HCl 50 mg 09/03/25 21:00 09/03/25 21:21 Trazodone Hcl 50 Mg Tablet PO 10/03/25 20:59 50 mg HS OLIVIA Administration Plan 25-year-old male with past medical history of DM1, neuropathy, anxiety, depression, and substance abuse disorder at home was admitted to the ICU for DKA. NEURO #Hx of Anxiety/depression #Hx of neuropathy On trazadone, reisperidone, and lyruca CARDIO #Sinus tachycardia, resolved Likely secondary to DKA PULM #No active disease GI #Abdominal pain, resolved #Intractable nausea and vomiting, resolved Likely secondary to DKA Patient did not complain of any further pain NEPHRO #MANISH on CKD Likely prerenal in the setting of dehydration Patient's baseline creatinine is around 1.7 and up trended to 4 on admission down trended to 223 Plan: With nephrotoxic agents Renally dose medication Follow-up daily CMP's #High anion gap metabolic acidosis, resolved #Lactic acidosis, resolved HEME # Leukocytosis WBC 13.9 downtrending to 11.5 No active signs of infection Likely reactive Plan: On ceftriaxone Monitor daily CBCs Follow-up on urinalysis blood cultures #Normocytic normochromic anemia Patient's hemoglobin from 15-13.1 today Likely hemodilutional No active signs of bleeding Plan: Follow-up on daily CBCs ENDO #DKA, resolved #DM1 ISS and degludec 10 units daily Hypoglycemia protocol ordered ID #[id number] On ceftriaxone MSK #No active problems SKIN #No active problems Feeding/fluids: carb low Analgesia: N/A Sedation: N/A Thromboprophylaxis: heparin subcu Ulcer prophylaxis: Protonix Glycemic control: AC Spontaneous breathing trial: N/A Bowel care: N/A Deescalation of antibiotics: Rocephin CODE STATUS: Full Code Case disclosed with Attending Dr. Timothy Sims PGY2 Disclaimer: Even though this this note was dictated by speech recognition and even though it was carefully revised there may still be minor errors in travel registered nurse oncology due to voice recognition software. Attending Provider Attestation/Addendum Patient seen and examined, discussed with resident team. In brief is a 25-year-old male admitted to the ICU for DKA. He was started on DKA protocol with insulin, labs and IV fluids. His anion gap is closed x 2 and he is switched to subcu insulin and sliding scale. His physical exam is benign. There is a question of possible UTI and he is on antibiotics for this. Will follow-up with cultures. He is stable for downgrade. Case discussed with ICU team Labs, imaging records reviewed Approximate 25 minutes required evaluation, exam, review, and medical discussion formation from
[2025-09-04] MEDS: HYDROcodone/APAP 5/325 TABLET 1 TAB PO ×2 (11:45→16:49)
[2025-09-04] MEDS: INSULIN LISPRO (AdmeLOG) 1 UNIT/0.01 ML UNIT SC ×2 (11:45→17:26)
--- NOTE | 2025-09-04 13:17 | PC.NURSE ---
Patient arrived to unit at this time. Patient is tachycardic with heart rate in 115-120. Patient is c/o acid reflux and constipation. Dr. Mijares notified. MD will place orders.
[2025-09-04] MEDS: SENNA/DOCUSATE SOD 1 TAB TABLET PO (13:49)
[2025-09-04] MEDS: FAMOTIDINE 20 MG TABLET PO (13:50)
--- NOTE | 2025-09-04 16:20 | ESPR_ITS ---
Documentation for date of: 09/04/25 Subjective Subjective Interval history: Pt is ICU downgrade, seen and examined at bedside in ICU. Pt's mom and grandmother at bedside. Pt reports he was diagnosed with type 1 diabetes when he was 2 years old, and was on insulin pump but at 14 he was taken off the pump and transitions to SC insulin which he is not complaint with at home. Pt is suppose to be taking NovoLog 10 units 3 times daily and Lantus 22 units at night. Patient also uses a Aqdot teo continuous glucometer however he endorses to not being compliant which causes him to go into DKA frequently. Patient states he has not seen a electronic health records specialist because he misses his appointments. A1c on admission is 11.9, current blood glucose is 139 patient is off of insulin drip and gap has been closed x 2. Patient is currently transitioned to degludec 10 units with sliding scale insulin. Exam Vital Signs Temp Pulse Resp BP Pulse Ox O2 Del Method 97.2 F 110 H 19 142/99 H 99 Room Air 09/04/25 12:40 09/04/25 12:40 09/04/25 12:40 09/04/25 12:40 09/04/25 12:40 09/04/25 12:40 Narrative Exam GENERAL: A&Ox3 . Awake, Not in acute distress NEURO: no focal neurological deficits HEENT: Atraumatic, Normocephalic. mucous membranes moist. Eyes open, symmetrical, & clear HEART: Normal Heart Sounds LUNGS: Clear to auscultation with no wheezing or crackles. ABDOMEN: soft, non-distended, Lower abdominal tenderness , bowel sounds heard SKIN: No Rash or ecchymoses, multiple tattoos noticed EXTREMITIES: No edema, tenderness, able to move all 4 extremities, pedal pulses palpated Objective Labs 09/05/25 05:05 09/05/25 05:05 Labs: Laboratory Results - last 24 hr 09/03/25 09/03/25 09/03/25 16:20 16:28 17:52 WBC 13.9 H RBC 4.82 Hgb 15.0 Hct 42.6 MCV 88 MCH 31.1 MCHC 35.2 RDW Std Deviation 40.0 Plt Count 418 Neut % (Auto) 89 H Lymph % (Auto) 6 L [place] % (Auto) 4 Eos % (Auto) 0 Baso % (Auto) 0 Neut # (Auto) 12.4 H Lymph # (Auto) 0.8 L [place] # (Auto) 0.5 Eos # (Auto) 0.0 Baso # (Auto) 0.0 Immature Gran # (Auto) 0.07 H Absolute Nucleated RBC 0.00 Immature Gran % 1 H Nucleated RBC % 0 PT 9.8 INR 0.9 APTT 22.8 Puncture Site Right Radial ABG pH 7.34 L ABG pCO2 29 L ABG pO2 112 H ABG HCO3 16 L ABG O2 Saturation 98 ABG Base Excess -9 L VBG pH VBG pCO2 VBG pO2 VBG O2 Sat (Michael) VBG Base Excess FiO2 21 Sodium 121 L Potassium 4.5 Chloride 73 L* Carbon Dioxide 17.1 L Anion Gap 31 H BUN 68 H Creatinine 4.0 H Estim Creat Clear Calc 22.3 L eGFR 20 L BUN/Creatinine Ratio 17 Glucose 692 H* Estimated Ave Glu mg/dL Hemoglobin A1c Calculated Osmolality 296 H Lactic Acid 2.6 H Calcium 9.4 Corrected Calcium 9.4 Phosphorus Magnesium 3.5 H Total Bilirubin 1.1 AST 15 ALT 19 Alkaline Phosphatase 124 H Troponin I < 0.020 B-Natriuretic Peptide < 20 Total Protein 8.0 Albumin 5.0 Globulin 3.0 Albumin/Globulin Ratio 1.7 Triglycerides Cancelled Cholesterol Cancelled LDL Cholesterol, Calc Cancelled HDL Cholesterol Cancelled Cholesterol/HDL Ratio Cancelled Lipase Beta-Hydroxybutyrate/Acetoacetate > 6.4 H Procalcitonin 0.68 H Urine Opiates Screen Urine Fentanyl Screen Ur Barbiturates Screen U Amphetamin/Meth Scrn U Benzodiazepines Scrn U Cocaine Metab Screen U Marijuana (THC) Screen 09/03/25 09/03/25 09/03/25 19:52 20:25 20:48 WBC RBC Hgb Hct MCV MCH MCHC RDW Std Deviation Plt Count Neut % (Auto) Lymph % (Auto) [place] % (Auto) Eos % (Auto) Baso % (Auto) Neut # (Auto) Lymph # (Auto) [place] # (Auto) Eos # (Auto) Baso # (Auto) Immature Gran # (Auto) Absolute Nucleated RBC Immature Gran % Nucleated RBC % PT INR APTT Puncture Site ABG pH ABG pCO2 ABG pO2 ABG HCO3 ABG O2 Saturation ABG Base Excess VBG pH 7.39 VBG pCO2 33 L VBG pO2 59 H VBG O2 Sat (Michael) 91 L VBG Base Excess -4 L FiO2 Sodium 122 L Potassium 4.5 Chloride 75 L* Carbon Dioxide 14.2 L* Anion Gap 33 H BUN 66 H Creatinine 4.0 H Estim Creat Clear Calc 22.3 L eGFR 20 L BUN/Creatinine Ratio 17 Glucose 660 H* Estimated Ave Glu mg/dL 295 H Hemoglobin A1c 11.9 H Calculated Osmolality 295 Lactic Acid 2.0 Calcium 9.8 Corrected Calcium 9.8 Phosphorus 3.7 Magnesium Total Bilirubin 1.1 AST 14 ALT 19 Alkaline Phosphatase 125 H Troponin I B-Natriuretic Peptide Total Protein 7.7 Albumin 5.1 H Globulin 2.6 Albumin/Globulin Ratio 2.0 Triglycerides 483 H Cholesterol 196 LDL Cholesterol, Calc TNP HDL Cholesterol 54 Cholesterol/HDL Ratio 3.6 L Lipase 34 Beta-Hydroxybutyrate/Acetoacetate Procalcitonin Urine Opiates Screen Urine Fentanyl Screen Ur Barbiturates Screen U Amphetamin/Meth Scrn U Benzodiazepines Scrn U Cocaine Metab Screen U Marijuana (THC) Screen 09/03/25 09/03/25 09/04/25 23:15 23:37 03:42 WBC 11.5 H RBC 4.11 L Hgb 13.1 L Hct 36.0 L MCV 88 MCH 31.9 MCHC 36.4 RDW Std Deviation 39.4 Plt Count 307 D Neut % (Auto) 78 Lymph % (Auto) 13 [place] % (Auto) 9 Eos % (Auto) 0 Baso % (Auto) 0 Neut # (Auto) 8.9 H Lymph # (Auto) 1.5 [place] # (Auto) 1.0 H Eos # (Auto) 0.0 Baso # (Auto) 0.0 Immature Gran # (Auto) 0.05 H Absolute Nucleated RBC 0.00 Immature Gran % 0 Nucleated RBC % 0 PT INR APTT Puncture Site ABG pH ABG pCO2 ABG pO2 ABG HCO3 ABG O2 Saturation ABG Base Excess VBG pH VBG pCO2 VBG pO2 VBG O2 Sat (Michael) VBG Base Excess FiO2 Sodium 132 L D 136 Potassium 3.9 D 3.8 Chloride 94 L 98 Carbon Dioxide 23.9 30.4 Anion Gap 14 8 BUN 30 H 31 H Creatinine 2.6 H D 2.2 H Estim Creat Clear Calc 34.3 L 40.6 L eGFR 34 L 41 L BUN/Creatinine Ratio 12 14 Glucose 154 H D [address] Glu mg/dL Hemoglobin A1c Calculated Osmolality 273 L 280 Lactic Acid Calcium 8.9 8.9 Corrected Calcium 8.9 8.9 Phosphorus 2.9 2.8 Magnesium 2.7 H 2.6 Total Bilirubin AST ALT Alkaline Phosphatase Troponin I B-Natriuretic Peptide Total Protein Albumin 4.2 D 4.1 Globulin Albumin/Globulin Ratio Triglycerides Cholesterol LDL Cholesterol, Calc HDL Cholesterol Cholesterol/HDL Ratio Lipase Beta-Hydroxybutyrate/Acetoacetate Procalcitonin Urine Opiates Screen Negative Urine Fentanyl Screen Negative Ur Barbiturates Screen Negative U Amphetamin/Meth Scrn Positive A U Benzodiazepines Scrn Negative U Cocaine Metab Screen Negative U Marijuana (THC) Screen Negative ABG Interpretation ABG results: 09/03/25 09/03/25 16:28 20:25 ABG pH 7.34 L ABG pCO2 29 L ABG pO2 112 H ABG HCO3 16 L ABG O2 Saturation 98 ABG Base Excess -9 L VBG pH 7.39 VBG pCO2 33 L VBG pO2 59 H VBG Base Excess -4 L Quality Measures Quality Measures none Assessment & Plan Assessment Current Active Medications: Generic Name Dose Route Start Last Admin Trade Name Freq PRN Reason Stop Dose Admin Acetaminophen 650 mg 09/03/25 19:21 09/04/25 07:51 Acetaminophen 325 Mg Tablet PO 10/03/25 19:20 650 mg Q6H PRN Administration Fever >101.5 Hydrocodone Bitart/Acetaminophen 1 tab 09/03/25 19:21 09/04/25 11:45 Hydrocodone/Apap 5/325 Tablet PO 09/08/25 19:20 1 tab Q4HR PRN Administration PAIN SCALE 4-10(Mod-Sev Dextrose 25 ml 09/03/25 19:26 Dextrose 50%-Water Inj 50 Ml Syringe IV [id number] PRN Blood Sugar - Low Dextrose 25 ml 09/04/25 10:05 Dextrose 50%-Water Inj 50 Ml Syringe IV 10/04/25 10:04 Q15MIN PRN BG 50-70 responsive npo pt Dextrose 50 ml 09/04/25 10:05 Dextrose 50%-Water Inj 50 Ml Syringe IV 10/04/25 10:04 Q15MIN PRN BG <50 OR BG <70 & pt unresponsive Glucagon 1 mg 09/04/25 10:05 Glucagon Inj 1 Mg Vial IM Q15MIN PRN BG <70, and no IV access Heparin Sodium (Porcine) 5,000 unit 09/03/25 22:00 09/04/25 13:50 Heparin Sod Inj 5000 Unit/Ml Vial SC 09/17/25 21:59 5,000 unit Q8HR OLIVIA Administration Ceftriaxone Sodium/Dextrose 1 gm in 50 mls @ 100 mls/hr 09/03/25 20:28 09/04/25 07:41 Rocephin/D5w 1gm Iv Premix IV 09/10/25 20:27 50 mls/hr QDAY OLIVIA Administration Insulin Degludec 10 unit 09/04/25 07:30 09/04/25 07:42 Insulin Degludec 5 Unit/0.05 Ml (Per 5 Units) SC 10/04/25 07:29 10 unit QDAY OLIVIA Administration Insulin Human Lispro 0 unit 09/04/25 11:30 09/04/25 11:45 Insulin Lispro (Admelog) 1 Unit/0.01 Ml Unit SC 10/04/25 11:29 3 unit AC OLIVIA Administration Protocol Morphine Sulfate 2 mg 09/03/25 19:39 09/04/25 01:58 Morphine Sulf Inj 4 Mg/Ml Vial IVP 2 mg Q4HR PRN Administration BREAKTHROUGH PAIN (SEVERE) Ondansetron HCl 4 mg 09/03/25 19:21 09/04/25 12:06 Ondansetron Inj 2 Mg/Ml Inj 2 Ml IVP 10/03/25 19:20 4 mg Q6H PRN Administration NAUSEA OR VOMITING Protocol Pantoprazole Sodium 40 mg 09/03/25 19:30 09/04/25 07:41 Pantoprazole 40 Mg Tablet PO 10/03/25 19:29 40 mg QDAY OLIVIA Administration Pregabalin 225 mg 09/03/25 21:00 09/04/25 07:41 Pregabalin 75 Mg Capsule PO 10/03/25 20:59 225 mg BID OLIVIA Administration Risperidone 2 mg 09/04/25 09:00 09/04/25 07:41 Risperidone 1 Mg Tablet PO 10/04/25 08:59 2 mg QDAY OLIVIA Administration Sennosides 1 tab 09/04/25 13:30 09/04/25 13:49 Senna/Docusate Sod 1 Tab Tablet PO 10/04/25 13:29 1 tab QDAY OLIVIA Administration Protocol Trazodone HCl 50 mg 09/03/25 21:00 09/03/25 21:21 Trazodone Hcl 50 Mg Tablet PO 10/03/25 20:59 50 mg HS OLIVIA Administration Plan Mr. Ann is a 25-year-old male with a past medical history of diabetes mellitus type 1, neuropathy, anxiety, depression, and substance abuse disorder who presented to the ER complaining of abdominal pain. Patient was admitted to ICU for management of diabetic ketoacidosis requiring insulin drip on 09/03/25 and downgraded to the floors for further management on 09/04/25 once transitioned to SC insulin. # Type 1 diabetes mellitus #DKA, resolved #High anion gap metabolic acidosis, resolved #Lactic acidosis, resolved #Abdominal pain, resolved #Intractable nausea and vomiting, resolved -Patient was diagnosed with type 1 diabetes at the age of 2 and used insulin pump until the age of 14 -Although patient is noncompliant with his daily meds he is supposed to be on NovoLog 10 units 3 times daily and Lantus 22 units at night. -on admission A1c is 11.9 and blood glucose 692, anion gap of 31 Plan: -In ICU patient was started on insulin drip and transition to subcu insulin 09/04 -ISS and degludec 10 units daily -Patient's abdominal pain with intractable nausea vomiting is likely secondary to DKA which has since resolved -Hypoglycemia protocol ordered #UTI -Pt complained of suprapubic pain and dysuria Urine analysis is positive for rare bacteria and pyuria with WBC count of 9 Plan: - Patient started on ceftriaxone 09/03- -urine cultures are pending #MANISH on CKD Likely prerenal in the setting of dehydration and DKA Patient's baseline creatinine is around 1.7 and up trended to 4 on admission down trended to 2.23 Renal ultrasound: Minimal dilatation of the renal calyces, consider urinary tract infection Plan: -Pt is given IV fluids during ICU admission for DKA, encourage to increase oral intake -Avoid nephrotoxic agents and Renally dose medication -Follow-up daily CMP's #Polysubstance use Pt urine tox is positive for methamphetamine and previous urine tox is positive for benzo, coccaine and marijuana -Pt is counseled on cessation of of drug use -Referred to social service #Hx of Anxiety/depression #Hx of neuropathy Resumed home rivas merazperidone, and lyrica Health Maintenance Disposition: Med-tele for management of Diabetes post DKA DVT Prophylaxis: Heparin 5000 units SC Q8 hrs GI Prophylaxis: Pantoprozol-40 IV Qday Diet: Cardiac or Diabetic Diet, carbohydrate consistent Lines: Peripheral lines Code status: Full Assessment and plan discussed with my attending physician Dr. Umesh Mijares (PGY-2)- Internal medicine resident Attending Provider Attestation/Addendum I have seen and examined the patient. I was physically present for the green portions of the services provided including history, physical exam, diagnosis, treatment plans and orders. I agree with assessment and plan of care as documented by residents. Even though this this note was carefully revised there may still be minor errors in light industrial supervisor due to voice recognition software. Kapil Calvo MD
[2025-09-04] MEDS: FAMOTIDINE INJ 10 MG/ML VIAL 2 ML 20 MG IVP (20:29)
--- NOTE | 2025-09-04 20:39 | PC.NURSE ---
MD Chacon made aware of pt BP 155/101, HR 101, per MD if the systolic BP more than 180 and to give him a call. informed also pt is complaining of chest pain and that he has it since he did throw up at home. ordered meds and will carried out.
[2025-09-05] VITALS: BP 141/92; PULSE 110; PULSE 78; RESP 18; TEMP 36.9; O2SAT 92
[2025-09-05] MEDS: HYDROcodone/APAP 5/325 TABLET 1 TAB PO ×3 (00:17→10:14)
[2025-09-05 04:00] VITALS: PULSE 77; PULSE 95; RESP 17; TEMP 36.1; O2SAT 95
[2025-09-05] MEDS: HEPARIN SOD INJ 5000 UNIT/ML VIAL SC (05:00)
[2025-09-05 06:00] VITALS: BMI 22.3
[2025-09-05 06:22] LABS: Basophils # (Auto) 0.0 Thou/mm3 (0.0-0.2); Basophils % (Auto) 0 % (0-2.5); Eosinophils # (Auto) 0.0 Thou/mm3 (0.0-0.5); Eosinophils % (Auto) 0 % (0-10); Hematocrit 32.9 % (41.0-53.0); Hemoglobin 11.6 g/dL (13.5-16.0); Immature Granulocytes Auto 0.02 Thou/mm3 (0.00-0.00); Lymphocytes # (Auto) 1.9 Thou/mm3 (1.0-4.8); Lymphocytes % (Auto) 30 % (10-50); Mean Corpuscular HGB Conc 35.3 g/dl (31.0-37.0); Mean Corpuscular Hemoglobin 32.1 pg (25.0-35.0); Mean Corpuscular Volume 91 fL (80-100); Monocytes # (Auto) 0.5 Thou/mm3 (0.0-0.8); Monocytes % (Auto) 8 % (0-12); Neutrophils # (Auto) 3.8 Thou/mm3 (1.8-7.7); Neutrophils % (Auto) 61 % (37-80); Nucleated Red Blood Cell # 0.00 Thou/mm3 (0.00-0.00); Nucleated Red Blood Cell % 0 /100 WBC (0); Platelet Count 169 Thou/mm3 (140-440); RDW Standard Deviation 39.6 fL (35.1-43.9); Red Blood Count 3.61 Miln/mm3 (4.50-5.90); White Blood Count 6.2 Thou/mm3 (3.8-10.6)
[2025-09-05 06:48] LABS: Alanine Aminotransferase 11 U/L (10-49); Albumin, Serum 3.8 gm/dL (3.5-5.0); Albumin/Globulin Ratio 2.0 (1.2-2.2); Alkaline Phosphatase 91 U/L (46-116); Anion Gap 8 (7-16); Aspartate Amino Transferase 14 U/L (0-34); BUN/Creatinine Ratio 13 Ratio (12-20); Bilirubin,Total 0.7 mg/dL (0.3-1.2); Blood Urea Nitrogen 19 mg/dL (9-23); Calcium 9.2 mg/dL (8.3-10.6); Calcium (Corrected) 9.4 mg/dL (8.5-10.1); Carbon Dioxide 29.3 mMol/L (20.0-31.0); Chloride 94 mMol/L (98-107); Creatinine (Component) 1.5 mg/dL (0.6-1.3); Estimated Creatinine Clearance 59.5 mL/min (>60); Globulin 1.9 gm/dL (2.3-3.5); Glucose 280 mg/dL (74-106); Osmolality,Calculated 274 (275-295); Potassium 4.2 mMol/L (3.4-5.1); Sodium 131 mMol/L (136-145); Total Protein 5.7 gm/dL (5.7-8.2); eGFR > 60 See Note
[2025-09-05] MEDS: INSULIN LISPRO (AdmeLOG) 1 UNIT/0.01 ML UNIT SC ×2 (07:33→12:01)
[2025-09-05 07:52] VITALS: PULSE 105
[2025-09-05 08:00] VITALS: BP 151/109; PULSE 103; RESP 16; TEMP 36.6; O2SAT 94
[2025-09-05] MEDS: SENNA/DOCUSATE SOD 1 TAB TABLET PO (08:48)
[2025-09-05] MEDS: PREGABALIN 75 MG CAPSULE 225 MG PO (08:48)
[2025-09-05] MEDS: INSULIN DEGLUDEC 5 UNIT/0.05 ML (PER 5 UNITS) 10 UNIT SC (08:49)
[2025-09-05] MEDS: cefTRIAXone/D5w 1gm IV premix 1 GM/50 ML BAG IV (08:49)
[2025-09-05] MEDS: PANTOPRAZOLE 40 MG TABLET PO (08:49)
--- NOTE | 2025-09-05 08:51 | PD.RESPRO ---
Documentation for date of: 09/05/25 Exam Vital Signs Temp Pulse Resp BP Pulse Ox O2 Del Method 97.8 F 103 H 16 151/109 H 94 L Room Air 09/05/25 08:00 09/05/25 08:00 09/05/25 08:00 09/05/25 08:00 09/05/25 08:00 09/05/25 08:00 Narrative Exam General: No acute distress, well nourished Eye: PERRL, EOMI, normal conjunctiva, no scleral icterus HENT: Normocephalic, atraumatic, normal hearing, moist oral mucosa Neck: Supple, non-tender, no JVD, no lymphadenopathy Lungs: Clear to auscultation bilaterally, non-labored respirations, symmetric chest rise, no use of accessory muscles Heart: Normal S1 and S2, no S3 or S4 appreciated. Normal rate and regular rhythm, no murmurs, rubs gallops, or edema. Peripheral pulses intact bilaterally, capillary refill brisk distally Abdomen: Soft, b/l lower quadrant TTP, non-distended, normal bowel sounds. No guarding or rebound tenderness. Musculoskeletal: Normal range of motion and strength, no tenderness or swelling Skin: Skin is warm, dry, no rashes or lesions. Multiple tattoos Neurologic: Alert, awake and oriented x3. CN II-XII grossly intact. No focal neuro deficits. No signs of meningeal irritation noted. Psychiatric: Cooperative, appropriate mood and affect Objective Labs 09/05/25 05:05 09/05/25 05:05 Labs: Laboratory Results - last 24 hr 09/05/25 05:05 WBC 6.2 D RBC 3.61 L Hgb 11.6 L Hct 32.9 L MCV 91 MCH 32.1 MCHC 35.3 RDW Std Deviation 39.6 Plt Count 169 D Neut % (Auto) 61 Lymph % (Auto) 30 [place] % (Auto) 8 Eos % (Auto) 0 Baso % (Auto) 0 Neut # (Auto) 3.8 Lymph # (Auto) 1.9 [place] # (Auto) 0.5 Eos # (Auto) 0.0 Baso # (Auto) 0.0 Immature Gran # (Auto) 0.02 H Absolute Nucleated RBC 0.00 Immature Gran % 0 Nucleated RBC % 0 Sodium 131 L Potassium 4.2 Chloride 94 L Carbon Dioxide 29.3 Anion Gap 8 BUN 19 Creatinine 1.5 H D Estim Creat Clear Calc 59.5 L eGFR > 60 BUN/Creatinine Ratio 13 Glucose 280 H D Calculated Osmolality 274 L Calcium 9.2 Corrected Calcium 9.4 Total Bilirubin 0.7 AST 14 ALT 11 Alkaline Phosphatase 91 D Total Protein 5.7 Albumin 3.8 Globulin 1.9 L Albumin/Globulin Ratio 2.0 ABG Interpretation ABG results: 09/03/25 09/03/25 16:28 20:25 ABG pH 7.34 L ABG pCO2 29 L ABG pO2 112 H ABG HCO3 16 L ABG O2 Saturation 98 ABG Base Excess -9 L VBG pH 7.39 VBG pCO2 33 L VBG pO2 59 H VBG Base Excess -4 L Quality Measures Quality Measures none Assessment & Plan Assessment Current Active Medications: Generic Name Dose Route Start Last Admin Trade Name Freq PRN Reason Stop Dose Admin Acetaminophen 650 mg 09/03/25 19:21 09/04/25 07:51 Acetaminophen 325 Mg Tablet PO 10/03/25 19:20 650 mg Q6H PRN Administration Fever >101.5 Hydrocodone Bitart/Acetaminophen 1 tab 09/03/25 19:21 09/05/25 04:40 Hydrocodone/Apap 5/325 Tablet PO 09/08/25 19:20 1 tab Q4HR PRN Administration PAIN SCALE 4-10(Mod-Sev Dextrose 25 ml 09/03/25 19:26 Dextrose 50%-Water Inj 50 Ml Syringe IV [id number] PRN Blood Sugar - Low Dextrose 25 ml 09/04/25 10:05 Dextrose 50%-Water Inj 50 Ml Syringe IV 10/04/25 10:04 Q15MIN PRN BG 50-70 responsive npo pt Dextrose 50 ml 09/04/25 10:05 Dextrose 50%-Water Inj 50 Ml Syringe IV 10/04/25 10:04 Q15MIN PRN BG <50 OR BG <70 & pt unresponsive Glucagon 1 mg 09/04/25 10:05 Glucagon Inj 1 Mg Vial IM Q15MIN PRN BG <70, and no IV access Heparin Sodium (Porcine) 5,000 unit 09/03/25 22:00 09/05/25 05:00 Heparin Sod Inj 5000 Unit/Ml Vial SC 09/17/25 21:59 5,000 unit Q8HR OLIVIA Administration Ceftriaxone Sodium/Dextrose 1 gm in 50 mls @ 100 mls/hr 09/03/25 20:28 09/04/25 07:41 Rocephin/D5w 1gm Iv Premix IV 09/10/25 20:27 50 mls/hr QDAY OLIVIA Administration Insulin Degludec 10 unit 09/04/25 07:30 09/04/25 07:42 Insulin Degludec 5 Unit/0.05 Ml (Per 5 Units) SC 10/04/25 07:29 10 unit QDAY OLIVIA Administration Insulin Human Lispro 0 unit 09/04/25 16:49 09/05/25 07:33 Insulin Lispro (Admelog) 1 Unit/0.01 Ml Unit SC 10/04/25 11:29 5 unit AC OLIVIA Administration Protocol Ondansetron HCl 4 mg 09/03/25 19:21 09/04/25 12:06 Ondansetron Inj 2 Mg/Ml Inj 2 Ml IVP 10/03/25 19:20 4 mg Q6H PRN Administration NAUSEA OR VOMITING Protocol Pantoprazole Sodium 40 mg 09/03/25 19:30 09/04/25 07:41 Pantoprazole 40 Mg Tablet PO 10/03/25 19:29 40 mg QDAY OLIVIA Administration Pregabalin 225 mg 09/03/25 21:00 09/04/25 20:11 Pregabalin 75 Mg Capsule PO 10/03/25 20:59 225 mg BID OLIVIA Administration Risperidone 2 mg 09/04/25 09:00 09/04/25 07:41 Risperidone 1 Mg Tablet PO 10/04/25 08:59 2 mg QDAY OLIVIA Administration Sennosides 1 tab 09/04/25 13:30 09/04/25 13:49 Senna/Docusate Sod 1 Tab Tablet PO 10/04/25 13:29 1 tab QDAY OLIVIA Administration Protocol Trazodone HCl 50 mg 09/03/25 21:00 09/04/25 20:11 Trazodone Hcl 50 Mg Tablet PO 10/03/25 20:59 50 mg HS OLIVIA Administration Plan Mr. Ann is a 25-year-old male with a past medical history of diabetes mellitus type 1, neuropathy, anxiety, depression, and substance abuse disorder who presented to the ER complaining of abdominal pain. Patient was admitted to ICU for management of diabetic ketoacidosis requiring insulin drip on 09/03/25 and downgraded to the floors for further management on 09/04/25 once transitioned to SC insulin. # Type 1 diabetes mellitus #DKA, resolved #High anion gap metabolic acidosis, resolved #Lactic acidosis, resolved #Abdominal pain, resolved #Intractable nausea and vomiting, resolved -Patient was diagnosed with type 1 diabetes at the age of 2 and used insulin pump until the age of 14 -Although patient is noncompliant with his daily meds he is supposed to be on NovoLog 10 units 3 times daily and Lantus 22 units at night. -on admission A1c is 11.9 and blood glucose 692, anion gap of 31 Plan: -In ICU patient was started on insulin drip and transition to subcu insulin 09/04 -ISS and degludec 10 units daily -Patient's abdominal pain with intractable nausea vomiting is likely secondary to DKA which has since resolved -Hypoglycemia protocol ordered #UTI -Pt complained of suprapubic pain and dysuria Urine analysis is positive for rare bacteria and pyuria with WBC count of 9 Plan: - Patient started on ceftriaxone 09/03- -urine cultures are pending #MANISH on CKD Likely prerenal in the setting of dehydration and DKA Patient's baseline creatinine is around 1.7 and up trended to 4 on admission down trended to 2.23 Renal ultrasound: Minimal dilatation of the renal calyces, consider urinary tract infection Plan: -Pt is given IV fluids during ICU admission for DKA, encourage to increase oral intake -Avoid nephrotoxic agents and Renally dose medication -Follow-up daily CMP's #Polysubstance use Pt urine tox is positive for methamphetamine and previous urine tox is positive for benzo, coccaine and marijuana -Pt is counseled on cessation of of drug use -Referred to social service #Hx of Anxiety/depression #Hx of neuropathy Resumed home trazadone, reisperidone, and lyrica Health Maintenance Disposition: Med-tele for management of Diabetes post DKA DVT Prophylaxis: Heparin 5000 units SC Q8 hrs GI Prophylaxis: Pantoprozol-40 IV Qday Diet: Cardiac or Diabetic Diet, carbohydrate consistent Lines: Peripheral lines Code status: Full
--- NOTE | 2025-09-05 11:58 | ESDS_ITS ---
Planned Discharge Date 09/05/25 DS: Providers Provider Date of admission: 09/03/25 19:27 Primary care physician: Dean Tanner MD Admitting Provider: Zack Ellis MD Attending Provider on Admission: Saba Aguirre MD Consults: 09/03/25 19:26 Referral Registered Dietitian Routine Comment: Attending Provider on DC: Dr. Calvo Discharging Provider: Tricia Light MD DS: Diagnosis Problem List Completed Was Problem List Reviewed/Reconciled?: Yes Hospital Course Hospital Course Hospital course: Hospital Course Mr. Ann is a 25 y/o male with PMH uncontrolled T1DM (A1C 11.9) c/b peripheral neuropathy, medication noncompliance, depression, and substance use disorder (THC, methamphetamine, cocaine) who presented to the ED on 09/03 with diffuse abdominal pain x 4 days. Associated with subjective fever, nausea, nonbloody nonbilious vomiting, poor PO intake, and headache. Previously hospitalized for DKA. Patient reported compliance with 22U Glargine with 10U Lispro TID with meals, and uses [employer] for CGM. Last methamphetmine use 09/02. In the ED, labs consistent with DKA (glucose 692, keturia, BHB > 6.4, lactic acid 2.6, pH 7.34/29/112, bicarb 17.1, anion gap 31), leukocytosis (13.1), MANISH (Cr 4). UDS + methamphetamine. Patient reported subprapubic pain with dysuria, and UA showed mild pyuria (WBC 9), given Ceftriaxone IV x1. Renal US showed minimal dilatation of renal calyces, c/f UTI. Final urine cx pending. Given 3L IV fluids, started on insulin gtt, and admitted to ICU for further management. He was started on DKA protocol with IV insulin, labs and IV fluids. His anion gap is closed x 2 and he was transitioned to subQ insulin Degludec 10U daily with Lispro sliding scale. Patient was downgraded to floors 09/04 without complication. Nausea and vomiting resolved with management of DKA. MANISH also improved with IV fluids and PO intake. Enalapril held 2/2 MANISH. Patient was counseled on substance use cessation. Patient to follow up with PCP and veterinary parasitologist for tighter control of blood glucose. Patient hemodynamically stable. Labs reviewed and stable. Patient stable and medically cleared for discharge. Diagnoses #Type 1 diabetes mellitus, uncontrolled #DKA, resolved #High anion gap metabolic acidosis, resolved #Lactic acidosis, resolved #Abdominal pain, resolved #Intractable nausea and vomiting, resolved #Complicated UTI #MANISH, improved #Substance use disorder (methamphetamine, THC, cocaine) #Hx of Anxiety #Hx of Depression #Hx of peripheral neuropathy Discharge Instructions - Follow up with PCP within 1 week of discharge, if you do not have a primary care physician you can come see us at the [facility] by calling [phone] - Follow up with endocrinology for diabetes medication - Take Glargine 22 units at bedtime - Take Lispro 10 units with each meal with sliding scale insulin as needed - Hold Enalapril for 1 week. Follow up with PCP before restarting this medication - Stop taking chlorthalidone - Take Pantoprazole 40 mg daily for heart burn and acid reflux - Take amlodipine 10 mg daily for high blood pressure - Continue rest of medications as previously prescribed - Return to the ED or call EMS if symptoms return and/or worsen Sliding scale insulin protocol: - If glucose 180-200 mg/dL --> administer 1U Lispro - If glucose 201-250 mg/dL --> administer 2U Lispro - If glucose 251-300 mg/dL --> administer 3U Lispro - If glucose >300 mg/dL --> administer 4U Lispro Triica Light MD PGY1 Time Spent with Patient Time attestation: Total time spent providing and/or coordinating discharge services: 35 minutes Time spent: Greater than 30 minutes Exam Vital Signs Temp Pulse Resp BP Pulse Ox O2 Del Method 97.8 F 103 H 16 151/109 H 94 L Room Air 09/05/25 08:00 09/05/25 08:00 09/05/25 08:00 09/05/25 08:00 09/05/25 08:00 09/05/25 08:00 Narrative Exam General: No acute distress, thin Eye: PERRL, EOMI, normal conjunctiva, no scleral icterus HENT: Normocephalic, atraumatic, normal hearing, moist oral mucosa Neck: Supple, non-tender, no JVD, no lymphadenopathy Lungs: Clear to auscultation bilaterally, non-labored respirations, symmetric chest rise, no use of accessory muscles Heart: Normal S1 and S2, no S3 or S4 appreciated. Normal rate and regular rhythm, no murmurs, rubs gallops, or edema. Peripheral pulses intact bilaterally, capillary refill brisk distally Abdomen: Soft, non-tender, non-distended, normal bowel sounds. No guarding or rebound tenderness. Musculoskeletal: Normal range of motion and strength, no tenderness or swelling Skin: Skin is warm, dry, no rashes or lesions. Tattoos appreciated Neurologic: Alert, awake and oriented x3. CN II-XII grossly intact. No focal neuro deficits. No signs of meningeal irritation noted. Psychiatric: Cooperative, appropriate mood and affect Discharge Plan Plan Patient Disposition: HOME (Self Care) Patient condition on transfer: Stable Care Plan Goals: - Follow up with PCP within 1 week of discharge, if you do not have a primary care physician you can come see us at the [facility] by calling [phone] - Follow up with endocrinology for diabetes medication - Take Glargine 22 units at bedtime - Take Lispro 10 units with each meal with sliding scale insulin as needed - Hold Enalapril for 1 week. Follow up with PCP before restarting this medication - Stop taking chlorthalidone - Take Pantoprazole 40 mg daily for heart burn and acid reflux - Take amlodipine 10 mg daily for high blood pressure - Continue rest of medications as previously prescribed - Return to the ED or call EMS if symptoms return and/or worsen Sliding scale insulin protocol: - If glucose 180-200 mg/dL --> administer 1U Lispro - If glucose 201-250 mg/dL --> administer 2U Lispro - If glucose 251-300 mg/dL --> administer 3U Lispro - If glucose >300 mg/dL --> administer 4U Lispro Prescriptions/Referrals Prescriptions/Med Rec: New pantoprazole 40 mg tablet,delayed release (DR/EC) 40 mg PO QDAY Qty: 30 0RF amlodipine 10 mg tablet 10 mg PO QDAY 15 Days Qty: 15 0RF Continued risperidone 2 mg tablet 2 mg PO BID Patient Comments: TAKE 1 TABLET BY MOUTH TWICE A DAY trazodone 100 mg tablet 50 mg PO .QHS Patient Comments: TAKE 1 TABLET (100 MG) BY ORAL ROUTE EVERY NIGHT AT BEDTIME escitalopram oxalate 20 mg tablet 20 mg PO QDAY Patient Comments: TAKE 1 TABLET BY MOUTH EVERY DAY DIRECTED pregabalin [Lyrica] 225 mg capsule 225 mg PO BID insulin lispro [Humalog U-100 Insulin] 100 unit/mL Solution 10 unit SUBCUT TID Qty: 3 0RF insulin aspart U-100 [Novolog FlexPen U-100 Insulin] 100 unit/mL (3 mL) insulin pen 10 unit SUBCUT TID Qty: 15 0RF (DME) FreeStyle Melanie 2 Sensor Kit Qty: 1 0RF Rx Instructions: As Directed Changed insulin glargine [Basaglar KwikPen U-100 Insulin] 100 unit/mL (3 mL) insulin pen 22 unit SUBCUT HS Qty: 15 0RF Held enalapril maleate 2.5 mg tablet 5 mg PO BID Hold Instructions: Resume on 09/16/25. Follow up with PCP before resuming due to MANISH during hospital admission Discontinued chlorthalidone 25 mg tablet 25 mg PO QDAY PRN (Reason: swelling) meloxicam 7.5 mg tablet 7.5 mg PO QDAY Patient Comments: TAKE 1 TABLET BY MOUTH EVERY DAY Referrals: Dean Tanner MD [Primary Care Provider, Family Practice] Patient/Caregiver Discharge Instructions Education Materials: Diabetes and Drinking Alcohol, Diabetes and Heart Disease, Managing Type 1 Diabetes, Healthy Meals for Diabetes, Diabetes: Caring for Your Body, Diabetes and Kidney Disease, Understanding the Disease of Addiction, Cocaine: Getting Help, Addiction: Getting Help, Addiction: Your Treatment Options, Recovering from Addiction, Understanding Methamphetamine ..., Treating Drug Abuse and Addiction, Diabetes: Living Your Life, Diabetes Insulin Pump Ch, Diabetes Exercise Plan, Diabetes: Meal Planning, Diabetes Carbs Fats Protein, Type 1 Diabetes: Getting Active, Understanding Type 1 Diabetes, Diabetes- Measuring Glucose at Home, Diabetes and Sensitive Topics, Diabetes: Tests You Need and Why, Diabetes and High Blood Pressure, Diabetic Retinopathy Print Language: Bulgarian Stand Alone Forms: [employer] Info., Patient Portal Info Letter Discharge Order Discharge Orders: Discharge (Routine); Ordered 09/05/25 Ordered By: Tricia Light Quality Discharge Quality Measures VTE prophylaxis Attestestation Attestation I have seen and examined the patient. I was physically present for the green portions of the services provided including history, physical exam, diagnosis, treatment plans and orders. I agree with assessment and plan of care as documented by residents. Even though this this note was carefully revised there may still be minor errors in custom bike builder due to voice recognition software. Kapil Calvo MD
[2025-09-05 12:00] VITALS: BP 141/98; PULSE 96; PULSE 97; RESP 18; TEMP 36.5; O2SAT 98
[2025-09-05] MEDS: INSULIN LISPRO (AdmeLOG) 1 UNIT/0.01 ML UNIT 7 UNIT SC (12:00)
[2025-09-05 12:05] LABS: Magnesium 2.2 mg/dL (1.6-2.6); Phosphorous 2.4 mg/dL (2.4-5.1)
== END 2025-09-05 14:58 | disposition home or self-care (01) | DRG 420 ==
LOC: SERX 16:47 → S2SX 09-04 06:49 → S3SX 09-05 11:36 → SERHOLD 09-09 08:35 → S3SX 09-09 08:35 → S2SX 09-09 08:35
PROVIDERS: Nurse Practitioner Family; Student in an Organized Health Care Education/Training Program; Admitting Provider Student in an Organized Health Care Education/Training Program; Emergency Provider Family Medicine; PCP Family Medicine; Visit Provider Internal Medicine
DX: E10.10 Type 1 diabetes mellitus with ketoacidosis without coma (principal); E86.0 Dehydration; N17.9 Acute kidney failure, unspecified; N39.0 Urinary tract infection, site not specified; F12.10 Cannabis abuse, uncomplicated; E10.22 Type 1 diabetes mellitus with diabetic chronic kidney disease; F14.10 Cocaine abuse, uncomplicated; D63.1 Anemia in chronic kidney disease; F15.10 Other stimulant abuse, uncomplicated; E87.1 Hypo-osmolality and hyponatremia; F17.200 Nicotine dependence, unspecified, uncomplicated; N18.9 Chronic kidney disease, unspecified; F32.A Depression, unspecified; G62.9 Polyneuropathy, unspecified; F41.9 Anxiety disorder, unspecified; Z79.4 Long term (current) use of insulin; Z91.148 Patient's other noncompliance with medication regimen for other reason; E10.42 Type 1 diabetes mellitus with diabetic polyneuropathy; Z79.899 Other long term (current) drug therapy
CPT/HCPCS: 36415; 36600; 71045; 76770; 80053; 80061; 80069; 80307; 82010; 82803; 83036; 83605; 83690; 83735; 83880; 84100; 84145; 84478; 84484; 85025; 85610; 85730; 87040; 87081; 87086; 93005; 93225; 96361; 96374; 96375; 99284; J0696; J1644; J1815; J2270; J2405; J3480; J3490; J7120; J7121; A9270